=== PATIENT | female | born 1955 | race Caucasian/White ===

== ENCOUNTER 2019-01-23 14:13 | Emergency (ER) | payer SELFPAY ==
[~2019-01-23] VITALS: Ht 161.3 cm; Wt 86.2 kg
[2019-01-23 14:55] VITALS: BP 130/63
--- NOTE | 2019-01-23 15:16 | ED General ---
General Chief Complaint: General Problems/Pain Stated Complaint: NUMBNESS IN FEET AND LEGS Nursing Triage Note: Pt ambulatory to rm 1. Pt has multiple complaints. Pt c/o bilateral lower extremity numbness and tingling, and back pain that has persisted for over a year. Pt c/o blurry vision and reports being diagnosed with bleeding behind the retina. Pt also reports alternating between "the runs" and constipation. Nursing Sepsis Screen: No Definite Risk Source of Information: Patient History of Present Illness Date Seen by Provider: Jan 23, 2019 Time Seen by Provider: 15:13 Initial Comments Patient has medical complaints complaints. The main one she admitted to the that was incontinence of urine for several months. She also complains of crampy abdominal pain and tingling in bilateral feet.. He has a history of diabetes mellitus. She is new to [facility], recently moved here from [facility]. Allergies and Home Medications Allergies Uncoded Allergies: PENICILLIN (Allergy, Unknown, 01/23/19) Patient Home Medication List Home Medication List Reviewed: Yes Review of Systems Review of Systems Constitutional: malaise, weakness Respiratory: no symptoms reported Gastrointestinal: abdominal pain Genitourinary: frequency, incontinence Musculoskeletal: muscle pain Psychiatric/Neurological: Paresthesia All Other Systems Reviewed Negative Unless Noted: Yes Past Xlqlhpw-Ztwgei-Hsgssz Hx Patient Social History Alcohol Use: Denies Use Recreational Drug Use: No Smoking Status: Current Everyday Smoker Type Used: Cigarettes 2nd Hand Smoke Exposure: Yes Recent Foreign Travel: No Contact w/Someone Who Travel: No Recent Infectious Disease Expo: No Recent Hopitalizations: No Physical Abuse: No Sexual Abuse: No Seasonal Allergies Seasonal Allergies: No Past Medical History Surgeries: Yes (stent) Respiratory: No Cardiac: Yes Heart Attack Neurological: No Genitourinary: No Gastrointestinal: No Musculoskeletal: No Endocrine: Yes Diabetes, Insulin dep HEENT: Yes ("bleeding behind retina") Psychosocial: No Integumentary: No Blood Disorders: No Adverse Reaction/Blood Tranf: No Physical Exam Vital Signs Vital Signs - First Documented 01/23/19 14:55 Temp 96.9 Pulse 79 Resp 24 B/P (MAP) 130/63 (85) Pulse Ox 95 O2 Delivery Room Air Capillary Refill : Less Than 3 Seconds Height, Weight, BMI Height: 5'3.50" Weight: 190lbs. oz. 86.907528et; BMI Method:Stated General Appearance: No Apparent Distress, WD/WN Eyes: Bilateral Eye PERRL, Bilateral Eye EOMI HEENT: PERRL/EOMI, Pharynx Normal Neck: Supple Respiratory: Lungs Clear, Normal Breath Sounds Cardiovascular: Regular Rate, Rhythm, No Edema Gastrointestinal: Non Tender, Soft Back: Normal Inspection Extremity: Normal Inspection, Normal Range of Motion Neurologic/Psychiatric: Alert, No Motor/Sensory Deficits Skin: Normal Color, Warm/Dry Progress/Results/Core Measures Suspected Sepsis Recent Fever Within 48 Hours: No Infection Criteria Present: None New/Unexplained Altered Menta: No Sepsis Screen: No Definite Risk SIRS Temperature:96.9 Pulse: 79 Respiratory Rate: 24 Laboratory Tests 01/23/19 15:15: White Blood Count 6.3 Blood Pressure 130 /63 Mean: 85 Laboratory Tests 01/23/19 15:15: Creatinine 0.65, Platelet Count 292, Total Bilirubin 0.3 Results/Orders Lab Results Laboratory Tests Test 01/23/19 15:08 01/23/19 15:15 Range/Units Urine Color YELLOW Urine Clarity SLIGHTLY CLOUDY Urine pH 7 5-9 Urine Specific [place] 1.010 L 1.016-1.022 Urine Protein 3+ H NEGATIVE Urine Glucose (UA) 3+ H NEGATIVE Urine Ketones NEGATIVE NEGATIVE Urine Nitrite NEGATIVE NEGATIVE Urine Bilirubin NEGATIVE NEGATIVE Urine Urobilinogen NORMAL NORMAL MG/DL Urine Leukocyte Esterase NEGATIVE NEGATIVE Urine RBC (Auto) 3+ H NEGATIVE Urine RBC 5-10 H /HPF Urine WBC RARE /HPF Urine Squamous Epithelial Cells 0-2 /HPF Urine Crystals PRESENT H /LPF Urine Amorphous Sediment FEW MIGUEL PHOSPHATE H /LPF Urine Bacteria TRACE /HPF Urine Casts PRESENT /LPF Urine Coarse Granular Casts RARE H /LPF Urine Mucus NEGATIVE /LPF Urine Culture Indicated NO White Blood Count 6.3 4.3-11.0 10^3/uL Red Blood Count 4.57 4.35-5.85 10^6/uL Hemoglobin 13.7 11.5-16.0 G/DL Hematocrit 41 35-52 % Mean Corpuscular Volume 90 80-99 FL Mean Corpuscular Hemoglobin 30 25-34 PG Mean Corpuscular Hemoglobin Concent 34 32-36 G/DL Red Cell Distribution Width 14.9 H 10.0-14.5 % Platelet Count 292 130-400 10^3/uL Mean Platelet Volume 10.2 7.4-10.4 FL Neutrophils (%) (Auto) 49 42-75 % Lymphocytes (%) (Auto) 39 12-44 % Monocytes (%) (Auto) 7 0-12 % Eosinophils (%) (Auto) 5 0-10 % Basophils (%) (Auto) 1 0-10 % Neutrophils # (Auto) 3.1 1.8-7.8 X 10^3 Lymphocytes # (Auto) 2.5 1.0-4.0 X 10^3 Monocytes # (Auto) 0.4 0.0-1.0 X 10^3 Eosinophils # (Auto) 0.3 0.0-0.3 10^3/uL Basophils # (Auto) 0.0 0.0-0.1 10^3/uL Sodium Level 143 135-145 MMOL/L Potassium Level 3.9 3.6-5.0 MMOL/L Chloride Level 108 H 98-107 MMOL/L Carbon Dioxide Level 25 21-32 MMOL/L Anion Gap 10 5-14 MMOL/L Blood Urea Nitrogen 12 7-18 MG/DL Creatinine 0.65 0.60-1.30 MG/DL Estimat Glomerular Filtration Rate > 60 BUN/Creatinine Ratio 18 Glucose Level 99 70-105 MG/DL Calcium Level 10.4 H 8.5-10.1 MG/DL Corrected Calcium 10.5 H 8.5-10.1 MG/DL Total Bilirubin 0.3 0.1-1.0 MG/DL Aspartate Amino Transf (AST/SGOT) 15 5-34 U/L Alanine Aminotransferase (ALT/SGPT) 16 0-55 U/L Alkaline Phosphatase 53 40-136 U/L Total Protein 6.8 6.4-8.2 GM/DL Albumin 3.9 3.2-4.5 GM/DL My Orders Orders - JOSE TAI MD Cbc With Automated Diff (01/23/19 14:58) Comprehensive Metabolic Panel (01/23/19 14:58) Ua Culture If Indicated (01/23/19 14:58) Vital Signs/I&O 01/23/19 14:55 Temp 96.9 Pulse 79 Resp 24 B/P (MAP) 130/63 (85) Pulse Ox 95 O2 Delivery Room Air Capillary Refill : Less Than 3 Seconds Blood Pressure Mean: 85 Progress Note : Time: 16:17 Progress Note Patient sleeping. Informed of lab results. Very pleased. Encouraged to follow -up primary care physician. Departure Impression Primary Impression: Urinary incontinence Disposition: 01 HOME, SELF-CARE Condition: Stable Departure-Patient Inst. Decision time for Depature: 16:17 Referrals: NO,LOCAL PHYSICIAN (PCP) Primary Care Physician Patient Instructions: Urinary Incontinence, Female (DC) Add. Discharge Instructions: See a local physician of your choice as soon as possible. All discharge instructions reviewed with patient and/or family. Voiced understanding. JOSE TAI MD Jan 23, 2019 15:16
[2019-01-23 15:20] LABS: BILIRUBIN,URINE NEGATIVE (NEGATIVE); CLARITY,URINE SLIGHTLY CLOUDY; COLOR,URINE YELLOW; GLUCOSE, URINE (UA) 3+ (NEGATIVE); KETONES,URINE NEGATIVE (NEGATIVE); LEUKOCYTE ESTERASE ,URINE NEGATIVE (NEGATIVE); NITRITE,URINE NEGATIVE (NEGATIVE); PH,URINE 7 (5-9); PROTEIN,URINE 3+ (NEGATIVE); UROBILINOGEN,URINE NORMAL (NORMAL)
[2019-01-23 15:30] LABS: BASOPHILS % (AUTO) 1 % (0-10); EOSINOPHILS # (AUTO) 0.3 10^3/uL (0.0-0.3); EOSINOPHILS % (AUTO) 5 % (0-10); HEMATOCRIT 41 % (35-52); HEMOGLOBIN 13.7 G/DL (11.5-16.0); LYMPHOCYTES # (AUTO) 2.5 X 10^3 (1.0-4.0); LYMPHOCYTES % (AUTO) 39 % (12-44); MEAN CORPUSCULAR HEMOGLOBIN 30 PG (25-34); MEAN CORPUSCULAR HGB CONC 34 G/DL (32-36); MEAN CORPUSCULAR VOLUME 90 FL (80-99); MEAN PLATELET VOLUME 10.2 FL (7.4-10.4); MONOCYTES # (AUTO) 0.4 X 10^3 (0.0-1.0); MONOCYTES % (AUTO) 7 % (0-12); NEUTROPHILS # (AUTO) 3.1 X 10^3 (1.8-7.8); NEUTROPHILS % (AUTO) 49 % (42-75); PLATELET COUNT 292 10^3/uL (130-400); RED CELL DISTRIBUTION WIDTH 14.9 % (10.0-14.5); WHITE BLOOD COUNT 6.3 10^3/uL (4.3-11.0)
[2019-01-23 15:37] LABS: BACTERIA,URINE TRACE /HPF; WBC,URINE RARE /HPF
--- OUTSIDE RECORDS SUMMARY | 2019-01-23 15:37 | XMS REPORT ---
Author Author Kayla Riley [facility] Address [address] [place] [address] Care Team Providers Care Certified Respiratory Therapist Name Role Phone Kayla Riley Unavailable PROBLEMS Type Condition ICD9-CM Code [id number] Code Onset Dates Condition Status SNOMED Code Problem Urinary incontinence, unspecified type R32 Active 198955155 Problem Uncontrolled type 2 diabetes mellitus without complication, without long-term current use of insulin E11.65 Active 241236875 Problem Fibromyalgia M79.7 Active 079181614 Problem History of suicidal ideation Z86.59 Active 484630616 Problem Peripheral polyneuropathy G62.9 Active 06497034 Problem Chronic post-traumatic stress disorder (PTSD) F43.12 Active 431933393 Problem Coronary artery disease involving [place] coronary artery of [place] heart, angina presence unspecified I25.10 Active 6742268685065 Problem Postmenopausal bleeding N95.0 Active 70859535 Problem Mixed hyperlipidemia E78.2 Active 684898475 Problem Insomnia, unspecified type G47.00 Active 533724445 Problem Cognitive complaints R41.9 Active 198516993 ALLERGIES Substance Reaction Event Type Date Status Penicillin Unknown Non Drug Allergy Nov, Active ENCOUNTERS Encounter Location Date Diagnosis [facility] [address] [place], [place] [id number] Nov, Encounter for screening breast examination Z12.31 ; Encounter for screening for malignant neoplasm of rectum Z12.12 and Encounter for screening for malignant neoplasm of colon Z12.11 [facility] [address] [place], [place] [id number] Sep, Coronary artery disease involving [place] coronary artery of [place] heart, angina presence unspecified I25.10 [facility] [address] [place], [place] [id number] Jul, [facility] [address] [place], [place] [id number] Jul, Chronic post-traumatic stress disorder (PTSD) F43.12 ; History of suicidal ideation Z86.59 and Cognitive complaints R41.9 [facility] [address] [facility] [address] [place], [place] [phone] Jul, Uncontrolled type 2 diabetes mellitus without complication, without long-term current use of insulin E11.65 ; Peripheral polyneuropathy G62.9 ; Postmenopausal bleeding N95.0 and Insomnia, unspecified type G47.00 [facility] [address] [place], [place] [id number] Jun, [facility] [address] [facility] [address] [place], [place] [id number] May, Uncontrolled type 2 diabetes mellitus without complication, without long-term current use of insulin E11.65 ; Postmenopausal bleeding N95.0 and Mixed hyperlipidemia E78.[address] [place], [place] [id number] Apr, Post traumatic stress disorder (PTSD) F43.10 and Grief F43.[address] [place], [place] [phone] Apr, Uncontrolled type 2 diabetes mellitus without complication, without long-term current use of insulin E11.65 ; Coronary artery disease involving [place] coronary artery of [place] heart, angina presence unspecified I25.10 ; Tobacco use Z72.0 ; Fibromyalgia M79.7 ; Peripheral polyneuropathy G62.9 ; Grief F43.21 ; Urinary incontinence, unspecified type R32 and Heartburn R12 [address] [id number] January, IMMUNIZATIONS No Known Immunizations SOCIAL HISTORY Never Assessed REASON FOR VISIT WWE PLAN OF CARE Activity Details Follow Up RTC PRN, unsure if pt will be moving to [place] within the week Reason: Pending Test Mammogram, Screening VITAL SIGNS Heart Rate 88 /min 2018-12-19 Respiratory Rate 16 /min 2018-12-19 Temperature 97.3 degrees Fahrenheit 2018-12-19 BMI 30.41 kg/m2 2018-12-19 Height 67 in 2018-12-19 Weight 194.2 lbs 2018-12-19 Blood pressure systolic 140 mm Hg 2018-12-19 Blood pressure diastolic 80 mm Hg 2018-12-19 MEDICATIONS Medication Instructions Dosage Frequency Start Date End Date Duration Status Lisinopril 20 MG Orally Once a day 1 tablet 24h 90 days Active GlipiZIDE 10 MG Orally twice a day 1 tablet 12h 30 days Active Aspirin 81 MG 1 tablet as needed Active Atorvastatin Calcium 40 MG Orally Once a day 1 tablet 24h May, 30 day(s) Not-Taking Metformin HCl 1000 MG Orally twice a day 1 tablet with a meal 12h 30 days Active Ranitidine HCl 150 MG Orally Twice a day 1 tablet 12h Apr, 30 day(s) Active Nortriptyline HCl 25 MG Orally Once a day 1 capsule; may increase to 2 if needed 24h Apr, 30 days Active Januvia 100 MG Orally Once a day 1 tablet 24h Jul, 30 day(s) Not-Taking RESULTS No Results PROCEDURES Procedure Date Ordered Result Body Site SCR MAMMO BI INCL CAD December 19, 2018 INSTRUCTIONS MEDICATIONS ADMINISTERED No Known Medications MEDICAL (GENERAL) HISTORY Type Description Date Medical History diabetes Medical History cad with stent 2010 Medical History PTSD Medical History fibromyalgia Medical History osteoarthritis Medical History bipolar disorder Medical History Grief Surgical History No know Surgical history Hospitalization History Heart attack in [facility] 2010
--- OUTSIDE RECORDS SUMMARY | 2019-01-23 15:37 | XMS REPORT ---
Author Author Tenisha Powell Formerly [facility] Address [address] [place] [address] Care Team Providers Care Non Destructive Evaluation Technician Name Role Phone Tenisha Powell Unavailable PROBLEMS Type Condition ICD9-CM Code [id number] Code Onset Dates Condition Status SNOMED Code Problem Fibromyalgia M79.7 Active 583116131 Problem Coronary artery disease involving [place] coronary artery of [place] heart, angina presence unspecified I25.10 Active 0788576537075 Problem Grief F43.21 Active 618431978 Problem Uncontrolled type 2 diabetes mellitus without complication, without long-term current use of insulin E11.65 Active 544401711 Problem Insomnia, unspecified type G47.00 Active 144195164 Problem Mixed hyperlipidemia E78.2 Active 326711228 Problem Urinary incontinence, unspecified type R32 Active 980304316 Problem Peripheral polyneuropathy G62.9 Active 24864207 Problem Postmenopausal bleeding N95.0 Active 39025160 Problem Post traumatic stress disorder (PTSD) F43.10 Active 99269495 ALLERGIES Substance Reaction Event Type Date Status Penicillin Unknown Non Drug Allergy Jul, Active ENCOUNTERS Encounter Location Date Diagnosis [facility] [place] [address] [facility] [address] [place], [place] [id number] Jul, [facility] [place] [address] [facility] [address] [place], [place] [id number] Jul, Uncontrolled type 2 diabetes mellitus without complication, without long-term current use of insulin E11.65 ; Peripheral polyneuropathy G62.9 ; Postmenopausal bleeding N95.0 and Insomnia, unspecified type G47.00 [facility] [address] [place], [place] [phone] Jun, [facility] [place] [address] [facility] [address] [place], [place] [id number] May, Uncontrolled type 2 diabetes mellitus without complication, without long-term current use of insulin E11.65 ; Postmenopausal bleeding N95.0 and Mixed hyperlipidemia E78.2 [facility] [place] [address] [facility] [address] [place], [place] [phone] Apr, Post traumatic stress disorder (PTSD) F43.10 and Grief F43.21 [facility] [place] [address] [facility] [address] [place], [place] [phone] Apr, Uncontrolled type 2 diabetes mellitus without complication, without long-term current use of insulin E11.65 ; Coronary artery disease involving [place] coronary artery of [place] heart, angina presence unspecified I25.10 ; Tobacco use Z72.0 ; Fibromyalgia M79.7 ; Peripheral polyneuropathy G62.9 ; Grief F43.21 ; Urinary incontinence, unspecified type R32 and Heartburn R12 [facility] [place] [address] [facility] [address] [place], [place] [phone] January, IMMUNIZATIONS No Known Immunizations SOCIAL HISTORY Never Assessed REASON FOR VISIT pain in pelvic PLAN OF CARE Activity Details Follow Up 2 Months Reason:dm, mood VITAL SIGNS Heart Rate 98 /min 2018-07-12 Respiratory Rate 16 /min 2018-07-12 Oximetry 98 % 2018-07-12 BMI 30.38 kg/m2 2018-07-12 Height 67 in 2018-07-12 Weight 194.0 lbs 2018-07-12 Blood pressure systolic 158 mm Hg 2018-07-12 Blood pressure diastolic 82 mm Hg 2018-07-12 MEDICATIONS Medication Instructions Dosage Frequency Start Date End Date Duration Status Lisinopril 20 MG Orally Once a day 1 tablet 24h 30 days Active Aspirin 81 MG 1 tablet as needed Active Ranitidine HCl 150 MG Orally Twice a day 1 tablet 12h Apr, 30 day(s) Active Atorvastatin Calcium 40 MG Orally Once a day 1 tablet 24h May, 30 day(s) Not-Taking Metformin HCl 1000 MG Orally twice a day 1 tablet with a meal 12h 30 days Active Nortriptyline HCl 25 MG Orally Once a day 1 capsule; may increase to 2 if needed 24h Apr, 30 days Active GlipiZIDE 10 MG Orally twice a day 1 tablet 12h 30 days Active Januvia 100 MG Orally Once a day 1 tablet 24h Jul, 30 day(s) Active RESULTS No Results PROCEDURES Procedure Date Ordered Result Body Site Multiple services provided same day adj 2nd copay Jul 12, 2018 Flu Shot Jul 12, 2018 INSTRUCTIONS MEDICATIONS ADMINISTERED No Known Medications MEDICAL (GENERAL) HISTORY Type Description Date Medical History diabetes Medical History cad with stent 2010 Medical History PTSD Medical History fibromyalgia Medical History osteoarthritis Medical History bipolar disorder Hospitalization History Heart attack in [place] [address]
--- OUTSIDE RECORDS SUMMARY | 2019-01-23 15:37 | XMS REPORT ---
Author Author Tenisha Powell Formerly [facility] Address [address] [place] [address] Care Team Providers Care Clinic Assistant Name Role Phone CelsaTenisha urena Unavailable PROBLEMS Type Condition ICD9-CM Code [id number] Code Onset Dates Condition Status SNOMED Code Problem Urinary incontinence, unspecified type R32 Active 171334179 Problem Fibromyalgia M79.7 Active 496334310 Problem Uncontrolled type 2 diabetes mellitus without complication, without long-term current use of insulin E11.65 Active 217952087 Problem Coronary artery disease involving [place] coronary artery of [place] heart, angina presence unspecified I25.10 Active 1772604049382 Problem Peripheral polyneuropathy G62.9 Active 17322841 Problem Chronic post-traumatic stress disorder (PTSD) F43.12 Active 723432369 Problem History of suicidal ideation Z86.59 Active 382286882 Problem Mixed hyperlipidemia E78.2 Active 546098347 Problem Postmenopausal bleeding N95.0 Active 55322228 Problem Cognitive complaints R41.9 Active 021223652 Problem Insomnia, unspecified type G47.00 Active 674898100 ALLERGIES Substance Reaction Event Type Date Status Penicillin Unknown Non Drug Allergy Jul, Active ENCOUNTERS Encounter Location Date Diagnosis [facility] [address] [facility] [address] [place], [place] [id number] Jul, [facility] [address] [facility] [address] [place], [place] [id number] Jul, Chronic post-traumatic stress disorder (PTSD) F43.12 ; History of suicidal ideation Z86.59 and Cognitive complaints R41.9 [facility] [address] [facility] [address] [place], [place] [id number] Jul, Uncontrolled type 2 diabetes mellitus without complication, without long-term current use of insulin E11.65 ; Peripheral polyneuropathy G62.9 ; Postmenopausal bleeding N95.0 and Insomnia, unspecified type G47.00 [place] [address] [place], [place] [id number] Jun, [facility] [address] [facility] [address] [place] [id number] May, Uncontrolled type 2 diabetes mellitus without complication, without long-term current use of insulin E11.65 ; Postmenopausal bleeding N95.0 and Mixed hyperlipidemia E78.2 [facility] [address] [facility] [address] [place] [id number] Apr, Post traumatic stress disorder (PTSD) F43.10 and Grief F43.21 [facility] [address] [facility] [address] [place] [id number] Apr, Uncontrolled type 2 diabetes mellitus without complication, without long-term current use of insulin E11.65 ; Coronary artery disease involving [place] coronary artery of [place] heart, angina presence unspecified I25.10 ; Tobacco use Z72.0 ; Fibromyalgia M79.7 ; Peripheral polyneuropathy G62.9 ; Grief F43.21 ; Urinary incontinence, unspecified type R32 and Heartburn R12 [address] [place] [id number] January, IMMUNIZATIONS No Known Immunizations SOCIAL HISTORY [...] Medical History bipolar disorder Medical History Grief Hospitalization History Heart attack in [facility] 2010
--- OUTSIDE RECORDS SUMMARY | 2019-01-23 15:37 | XMS REPORT ---
Author Author Tenisha Powell [facility] Address [address] [place] [address] Care Team Providers Care Academic Interventionist Name Role Phone Tenisha Powell Unavailable PROBLEMS Type Condition ICD9-CM Code PAV42-ZD Code Onset Dates Condition Status SNOMED Code Problem Fibromyalgia M79.7 Active 987757717 Problem Grief F43.21 Active 490269890 Problem Uncontrolled type 2 diabetes mellitus without complication, without long-term current use of insulin E11.65 Active 312436285 Problem Mixed hyperlipidemia E78.2 Active 214578239 Problem Postmenopausal bleeding N95.0 Active 88071773 Problem Peripheral polyneuropathy G62.9 Active 10665012 Problem Coronary artery disease involving [place] coronary artery of [place] heart, angina presence unspecified I25.10 Active 2844040339587 Problem Post traumatic stress disorder (PTSD) F43.10 Active 57250394 Problem Urinary incontinence, unspecified type R32 Active 967393235 ALLERGIES No Information ENCOUNTERS Encounter Location Date Diagnosis [facility] [address] [facility] [address] [place], [place] [id number] Jun, [facility] [address] [place], [place] [phone] Jun, [facility] [address] [facility] [address] [place], [place] [id number] May, Uncontrolled type 2 diabetes mellitus without complication, without long-term current use of insulin E11.65 ; Postmenopausal bleeding N95.0 and Mixed hyperlipidemia E78.2 [facility] [address] [facility] [address] [place], [place] [phone] Apr, Post traumatic stress disorder (PTSD) F43.10 and Grief F43.21 [facility] [address] [facility] [address] [place], [place] [phone] Apr, Uncontrolled type 2 diabetes mellitus without complication, without long-term current use of insulin E11.65 ; Coronary artery disease involving [place] coronary artery of [place] heart, angina presence unspecified I25.10 ; Tobacco use Z72.0 ; Fibromyalgia M79.7 ; Peripheral polyneuropathy G62.9 ; Grief F43.21 ; Urinary incontinence, unspecified type R32 and Heartburn R12 [facility] [address] [place], [place] [id number] January, IMMUNIZATIONS No Known Immunizations SOCIAL HISTORY Never Assessed REASON FOR VISIT PLAN OF CARE VITAL SIGNS MEDICATIONS Unknown Medications RESULTS No Results PROCEDURES No Known procedures INSTRUCTIONS MEDICATIONS ADMINISTERED No Known Medications MEDICAL (GENERAL) HISTORY Type Description Date Medical History diabetes Medical History cad with stent 2010 Medical History PTSD Medical History fibromyalgia Medical History osteoarthritis Medical History bipolar disorder Hospitalization History Heart attack in [facility] 2010
--- OUTSIDE RECORDS SUMMARY | 2019-01-23 15:37 | XMS REPORT ---
Author Author Tenisha Powell [facility] Address [address] [place] [address] Care Team Providers Care Buttonhole Maker Hand Name Role Phone Tenisha Powell Unavailable PROBLEMS Type Condition ICD9-CM Code [id number] Code Onset Dates Condition Status SNOMED Code Problem Urinary incontinence, unspecified type R32 Active 758690183 Problem Uncontrolled type 2 diabetes mellitus without complication, without long-term current use of insulin E11.65 Active 009490856 Problem Fibromyalgia M79.7 Active 945585897 Problem History of suicidal ideation Z86.59 Active 931703991 Problem Peripheral polyneuropathy G62.9 Active 07958322 Problem Chronic post-traumatic stress disorder (PTSD) F43.12 Active 045378356 Problem Coronary artery disease involving ey[place] coronary artery of eyak heart, angina presence unspecified I25.10 Active 8992178353089 Problem Postmenopausal bleeding N95.0 Active 77085776 Problem Mixed hyperlipidemia E78.2 Active 525682267 Problem Insomnia, unspecified type G47.00 Active 881501867 Problem Cognitive complaints R41.9 Active 578861932 ALLERGIES No Information ENCOUNTERS Encounter Location Date Diagnosis [facility] [place] [address] [place], [place] [id number] Dec, Uncontrolled type 2 diabetes mellitus without complication, without long-term current use of insulin E11.65 [facility] [place] [address] [place], [place] [phone] Nov, Encounter for screening breast examination Z12.31 ; Encounter for screening for malignant neoplasm of rectum Z12.12 and Encounter for screening for malignant neoplasm of colon Z12.11 [facility] [place] [address] [place], [place] [phone] Sep, Coronary artery disease involving ey[place] coronary artery of eyak heart, angina presence unspecified I25.10 [facility] [place] [address] [place], [place] [phone] Jul, [facility] [place] [address] [place], [place] [id number] Jul, Chronic post-traumatic stress disorder (PTSD) F43.12 ; History of suicidal ideation Z86.59 and Cognitive complaints R41.[address] [place], [place] [id number] Jul, Uncontrolled type 2 diabetes mellitus without complication, without long-term current use of insulin E11.65 ; Peripheral polyneuropathy G62.9 ; Postmenopausal bleeding N95.0 and Insomnia, unspecified type G47.00 [facility] [address] [place], [place] [id number] Jun, [facility] [place] [address] [facility] [place] [address] [place], [place] [id number] May, Uncontrolled type 2 diabetes mellitus without complication, without long-term current use of insulin E11.65 ; Postmenopausal bleeding N95.0 and Mixed hyperlipidemia E78.[address] [id number] Apr, Post traumatic stress disorder (PTSD) F43.10 and Grief F43.[address] [id number] Apr, Uncontrolled type 2 diabetes mellitus without complication, without long-term current use of insulin E11.65 ; Coronary artery disease involving ey[place] coronary artery of eyak heart, angina presence unspecified I25.10 ; Tobacco use Z72.0 ; Fibromyalgia M79.7 ; Peripheral polyneuropathy G62.9 ; Grief F43.21 ; Urinary incontinence, unspecified type R32 and Heartburn R12 [address] [id number] January, IMMUNIZATIONS No Known Immunizations SOCIAL HISTORY Never Assessed REASON FOR VISIT med PLAN OF CARE VITAL SIGNS MEDICATIONS Medication Instructions Dosage Frequency Start Date End Date Duration Status Metformin HCl 1000 MG Orally twice a day 1 tablet with a meal 12h 30 days Active RESULTS No Results PROCEDURES No Known procedures INSTRUCTIONS MEDICATIONS ADMINISTERED No Known Medications MEDICAL (GENERAL) HISTORY Type Description Date Medical History diabetes Medical History cad with stent 2010 Medical History PTSD Medical History fibromyalgia Medical History osteoarthritis Medical History bipolar disorder Medical History Grief Surgical History No know Surgical history Hospitalization History Heart attack in [facility] 2010
--- OUTSIDE RECORDS SUMMARY | 2019-01-23 15:37 | XMS REPORT ---
Author Author Costa Brinda [facility] Address [address] [facility] [address] [place], [place] [phone] Care Team Providers Care Chinese Herbalist Name Role Phone Surendra Skeltonnon Unavailable PROBLEMS Type Condition ICD9-CM Code [id number] Code Onset Dates Condition Status SNOMED Code Problem Urinary incontinence, unspecified type R32 Active 834268170 Problem Fibromyalgia M79.7 Active 224872619 Problem Uncontrolled type 2 diabetes mellitus without complication, without long-term current use of insulin E11.65 Active 246504115 Problem Coronary artery disease involving [place] coronary artery of [place] heart, angina presence unspecified I25.10 Active 2454194118428 Problem Peripheral polyneuropathy G62.9 Active 04477239 Problem Chronic post-traumatic stress disorder (PTSD) F43.12 Active 249390633 Problem History of suicidal ideation Z86.59 Active 901704050 Problem Mixed hyperlipidemia E78.2 Active 229179314 Problem Postmenopausal bleeding N95.0 Active 11322108 Problem Cognitive complaints R41.9 Active 966946309 Problem Insomnia, unspecified type G47.00 Active 509344431 ALLERGIES No Information ENCOUNTERS Encounter Location Date Diagnosis [facility] [address] [facility] [address] [place], [place] [id number] Jul, Chronic post-traumatic stress disorder (PTSD) F43.12 ; History of suicidal ideation Z86.59 and Cognitive complaints R41.9 [facility] [address] [facility] [address] [place], [place] [phone] Jul, Uncontrolled type 2 diabetes mellitus without complication, without long-term current use of insulin E11.65 ; Peripheral polyneuropathy G62.9 ; Postmenopausal bleeding N95.0 and Insomnia, unspecified type G47.00 [facility] [address] [place], [place] [phone] Jun, [facility] [address] [facility] [address] [place], [place] [phone] May, Uncontrolled type 2 diabetes mellitus without complication, without long-term current use of insulin E11.65 ; Postmenopausal bleeding N95.0 and Mixed hyperlipidemia E78.2 [facility] [address] [facility] [address] [place], [place] [phone] Apr, Post traumatic stress disorder (PTSD) F43.10 and Grief F43.[address] [facility] [address] [place], [place] [id number] Apr, Uncontrolled type 2 diabetes mellitus without complication, without long-term current use of insulin E11.65 ; Coronary artery disease involving [place] coronary artery of [place] heart, angina presence unspecified I25.10 ; Tobacco use Z72.0 ; Fibromyalgia M79.7 ; Peripheral polyneuropathy G62.9 ; Grief F43.21 ; Urinary incontinence, unspecified type R32 and Heartburn R12 [address] [facility] [address] [place], [place] [phone] January, IMMUNIZATIONS No Known Immunizations SOCIAL HISTORY Never Assessed REASON FOR VISIT pain in pelvic, [facility] Integrated Visit PLAN OF CARE VITAL SIGNS MEDICATIONS Unknown Medications RESULTS No Results PROCEDURES Procedure Date Ordered Result Body Site Psytx Est pt & family 30 minutes Jul 12, 2018 Multiple services provided same day adj 2nd copay Jul 12, 2018 INSTRUCTIONS MEDICATIONS ADMINISTERED No Known Medications MEDICAL (GENERAL) HISTORY Type Description Date Medical History diabetes Medical History cad with stent 2010 Medical History PTSD Medical History fibromyalgia Medical History osteoarthritis Medical History bipolar disorder Hospitalization History Heart attack in [facility] 2010
--- OUTSIDE RECORDS SUMMARY | 2019-01-23 15:37 | XMS REPORT ---
Author Author Tenisha Powell [facility] Address [address] [place] [address] Care Team Providers Care Walnut Dehydrator Operator Name Role Phone Tenisha Powell Unavailable PROBLEMS Type Condition ICD9-CM Code [id number] Code Onset Dates Condition Status SNOMED Code Problem Fibromyalgia M79.7 Active 997453733 Problem Grief F43.21 Active 558997016 Problem Uncontrolled type 2 diabetes mellitus without complication, without long-term current use of insulin E11.65 Active 978449203 Problem Mixed hyperlipidemia E78.2 Active 171653636 Problem Postmenopausal bleeding N95.0 Active 25506181 Problem Peripheral polyneuropathy G62.9 Active 21500697 Problem Coronary artery disease involving [place] coronary artery of [place] heart, angina presence unspecified I25.10 Active 1774991321063 Problem Post traumatic stress disorder (PTSD) F43.10 Active 94612602 Problem Urinary incontinence, unspecified type R32 Active 275089891 ALLERGIES Substance Reaction Event Type Date Status Penicillin Unknown Non Drug Allergy May, Active ENCOUNTERS Encounter Location Date Diagnosis [facility] [address] [facility] [address] [place], [place] [phone] Jun, [facility] [address] [facility] [address] [place], [place] [id number] May, Uncontrolled type 2 diabetes mellitus without complication, without long-term current use of insulin E11.65 ; Postmenopausal bleeding N95.0 and Mixed hyperlipidemia E78.2 [facility] [address] [facility] [address] [place], [place] [id number] Apr, Post traumatic stress disorder (PTSD) F43.10 and Grief F43.21 [facility] [address] [facility] [address] [place], [place] [id number] Apr, Uncontrolled type 2 diabetes mellitus without complication, without long-term current use of insulin E11.65 ; Coronary artery disease involving [place] coronary artery of [place] heart, angina presence unspecified I25.10 ; Tobacco use Z72.0 ; Fibromyalgia M79.7 ; Peripheral polyneuropathy G62.9 ; Grief F43.21 ; Urinary incontinence, unspecified type R32 and Heartburn R12 [facility] [address] [place] [id number] January, IMMUNIZATIONS No Known Immunizations SOCIAL HISTORY Never Assessed REASON FOR VISIT 6 wks DM fu PLAN OF CARE Activity Details Follow Up 4 Weeks procedure Reason:embx Pending Test Glucose, Serum Pending Test Ultrasound : Pelvic : Transvaginal if Needed VITAL SIGNS Heart Rate 86 /min 2018-05-29 Respiratory Rate 16 /min 2018-05-29 Oximetry 98 % 2018-05-29 BMI 30.16 kg/m2 2018-05-29 Height 67 in 2018-05-29 Weight 192.6 lbs 2018-05-29 Blood pressure systolic 142 mm Hg 2018-05-29 Blood pressure diastolic 70 mm Hg 2018-05-29 MEDICATIONS Medication Instructions Dosage Frequency Start Date End Date Duration Status Ranitidine HCl 150 MG Orally Twice a day 1 tablet 12h Apr, 30 day(s) Active Aspirin 81 MG 1 tablet as needed Active Atorvastatin Calcium 40 MG Orally Once a day 1 tablet 24h May, 30 day(s) Active Nortriptyline HCl 10 MG Orally at bedtime Once a day 1 capsule 24h Apr, 30 day(s) Active Lisinopril 20 MG Orally Once a day 1 tablet 24h 30 days Active Metformin HCl 1000 MG Orally twice a day 1 tablet with a meal 12h 30 days Active GlipiZIDE 10 MG Orally twice a day 1 tablet 12h 30 days Active RESULTS No Results PROCEDURES Procedure Date Ordered Result Body Site ASSAY GLUCOSE BLOOD QUANT GLUCOSE; QUANTITATIVE, BLOOD (EXCEPT REAGENT STRIP) May 29, 2018 ANOSCOPY May 29, 2018 INSTRUCTIONS MEDICATIONS ADMINISTERED No Known Medications MEDICAL (GENERAL) HISTORY Type Description Date Medical History diabetes Medical History cad with stent 2010 Medical History PTSD Medical History fibromyalgia Medical History osteoarthritis Medical History bipolar disorder Hospitalization History Heart attack in [facility] 2010
--- OUTSIDE RECORDS SUMMARY | 2019-01-23 15:37 | XMS REPORT ---
Author Author Tenisha Powell [facility] Address [address] [place] [address] Care Team Providers Care Guitar Repair Technician Name Role Phone Tenisha Powell Unavailable PROBLEMS Type Condition ICD9-CM Code [id number] Code Onset Dates Condition Status SNOMED Code Problem Urinary incontinence, unspecified type R32 Active 441067930 Problem Uncontrolled type 2 diabetes mellitus without complication, without long-term current use of insulin E11.65 Active 537880148 Problem Fibromyalgia M79.7 Active 037234268 Problem History of suicidal ideation Z86.59 Active 801430667 Problem Peripheral polyneuropathy G62.9 Active 05237538 Problem Chronic post-traumatic stress disorder (PTSD) F43.12 Active 315574773 Problem Coronary artery disease involving [place] coronary artery of [place] heart, angina presence unspecified I25.10 Active 7824597660752 Problem Postmenopausal bleeding N95.0 Active 05509671 Problem Mixed hyperlipidemia E78.2 Active 217747982 Problem Insomnia, unspecified type G47.00 Active 335143336 Problem Cognitive complaints R41.9 Active 680595657 ALLERGIES No Information ENCOUNTERS Encounter Location Date Diagnosis [facility] [address] [facility] [address] [place], [place] [phone] Dec, Uncontrolled type 2 diabetes mellitus without complication, without long-term current use of insulin E11.65 and Coronary artery disease involving [place] coronary artery of [place] heart, angina presence unspecified I25.10 [facility] [address] [facility] [address] [place], [place] [id number] Dec, Uncontrolled type 2 diabetes mellitus without complication, without long-term current use of insulin E11.65 [facility] [address] [facility] [address] [place], [place] [id number] Nov, Encounter for screening breast examination Z12.31 ; Encounter for screening for malignant neoplasm of rectum Z12.12 and Encounter for screening for malignant neoplasm of colon Z12.11 [facility] [address] [facility] [address] [place], [place] [id number] Sep, Coronary artery disease involving [place] coronary artery of [place] heart, angina presence unspecified I25.10 [facility] [address] [facility] [address] [place], [place] [id number] Jul, [facility] [address] [facility] [address] [place], [place] [id number] Jul, Chronic post-traumatic stress disorder (PTSD) F43.12 ; History of suicidal ideation Z86.59 and Cognitive complaints R41.[address] [place], [place] [id number] Jul, Uncontrolled type 2 diabetes mellitus without complication, without long-term current use of insulin E11.65 ; Peripheral polyneuropathy G62.9 ; Postmenopausal bleeding N95.0 and Insomnia, unspecified type G47.00 [facility] [address] [place], [place] [phone] Jun, [address] [place], [place] [phone] May, Uncontrolled type 2 diabetes mellitus without complication, without long-term current use of insulin E11.65 ; Postmenopausal bleeding N95.0 and Mixed hyperlipidemia E78.[address] [place], [place] [id number] Apr, Post traumatic stress disorder (PTSD) F43.10 and Grief F43.[address] [place], [place] [id number] Apr, Uncontrolled type 2 diabetes mellitus without complication, without long-term current use of insulin E11.65 ; Coronary artery disease involving [place] coronary artery of [place] heart, angina presence unspecified I25.10 ; Tobacco use Z72.0 ; Fibromyalgia M79.7 ; Peripheral polyneuropathy G62.9 ; Grief F43.21 ; Urinary incontinence, unspecified type R32 and Heartburn R12 [address] [place], [place] [id number] January, IMMUNIZATIONS No Known Immunizations SOCIAL HISTORY Never Assessed REASON FOR VISIT Refill Request PLAN OF CARE VITAL SIGNS MEDICATIONS Medication [...] Surgical history Hospitalization History Heart attack in [facility] 2010
[2019-01-23 15:38] LABS: AMORPHOUS SEDIMENT,UR FEW AMOR PHOSPHATE /LPF; SQUAMOUS EPITHELIAL CELL,UR 0-2 /HPF
--- OUTSIDE RECORDS SUMMARY | 2019-01-23 15:38 | XMS REPORT ---
Author Author Care, Coordinator Organization Unknown Address Unknown Phone Unavailable Care Team Providers Care Package Winder Name Role Phone Care, Coordinator Unavailable Unavailable PROBLEMS Unknown Problems ALLERGIES No Information ENCOUNTERS Encounter Location Date Diagnosis [facility] [address] [place], [place] [phone] Mar, [facility] [address] [place], [place] [phone] January, IMMUNIZATIONS No Known Immunizations SOCIAL HISTORY Never Assessed REASON FOR VISIT PLAN OF CARE VITAL SIGNS MEDICATIONS Unknown Medications RESULTS No Results PROCEDURES No Known procedures INSTRUCTIONS MEDICATIONS ADMINISTERED No Known Medications
--- OUTSIDE RECORDS SUMMARY | 2019-01-23 15:38 | XMS REPORT ---
Author Author Osito Joe [facility] Address [address] [facility] [address] [place] [address] Care Team Providers Care Landscape Nurseryman Name Role Phone FatemehdebbieOsito Unavailable PROBLEMS Type Condition ICD9-CM Code [id number] Code Onset Dates Condition Status SNOMED Code Problem Uncontrolled type 2 diabetes mellitus without complication, without long-term current use of insulin E11.65 Active 521805631 Problem Post traumatic stress disorder (PTSD) F43.10 Active 36903198 Problem Urinary incontinence, unspecified type R32 Active 643570198 Problem Grief F43.21 Active 720482685 Problem Fibromyalgia M79.7 Active 346502652 Problem Peripheral polyneuropathy G62.9 Active 05314976 Problem Coronary artery disease involving [place] coronary artery of [place] heart, angina presence unspecified I25.10 Active 7126158425131 ALLERGIES No Information ENCOUNTERS Encounter Location Date Diagnosis [facility] [address] [facility] [address] [place], [place] [phone] May, [facility] [address] [facility] [address] [place], [place] [phone] Apr, Post traumatic stress disorder (PTSD) F43.10 and Grief F43.21 [facility] [address] [facility] [address] [place], [place] [id number] Apr, Uncontrolled type 2 diabetes mellitus without complication, without long-term current use of insulin E11.65 ; Coronary artery disease involving [place] coronary artery of [place] ir[place] heart, angina presence unspecified I25.10 ; Tobacco use Z72.0 ; Fibromyalgia M79.7 ; Peripheral polyneuropathy G62.9 ; Grief F43.21 ; Urinary incontinence, unspecified type R32 and Heartburn R12 [facility] [address] [facility] [address] [place], [place] [phone] January, IMMUNIZATIONS No Known Immunizations SOCIAL HISTORY Never Assessed REASON FOR VISIT grief reaction PLAN OF CARE VITAL SIGNS MEDICATIONS Unknown Medications RESULTS No Results PROCEDURES Procedure Date Ordered Result Body Site Psytx New Pt April 17, 2018 Multiple services provided same day adj 2nd copay April 17, 2018 BEHAV CHNG SMOKING 3-10 MIN April 17, 2018 INSTRUCTIONS MEDICATIONS ADMINISTERED No Known Medications MEDICAL (GENERAL) HISTORY Type Description Date Medical History diabetes Medical History cad with stent 2010 Medical History PTSD Medical History fibromyalgia Medical History osteoarthritis Hospitalization History Heart attack in [facility] 2010
--- OUTSIDE RECORDS SUMMARY | 2019-01-23 15:38 | XMS REPORT ---
Author Author Tenisha Powell [facility] Address [address] [place] [address] Care Team Providers Care [facility] Pricing Consultant Name Role Phone Tenisha Poewll Unavailable PROBLEMS Type Condition ICD9-CM Code [id number] Code Onset Dates Condition Status SNOMED Code Problem Uncontrolled type 2 diabetes mellitus without complication, without long-term current use of insulin E11.65 Active 680949175 Problem Post traumatic stress disorder (PTSD) F43.10 Active 54741713 Problem Urinary incontinence, unspecified type R32 Active 665243391 Problem Grief F43.21 Active 394584596 Problem Fibromyalgia M79.7 Active 983573780 Problem Peripheral polyneuropathy G62.9 Active 45797225 Problem Coronary artery disease involving [place] coronary artery of [place] heart, angina presence unspecified I25.10 Active 0366936901783 ALLERGIES Substance Reaction Event Type Date Status Penicillin Unknown Non Drug Allergy Apr, Active ENCOUNTERS Encounter Location Date Diagnosis [facility] [address] [facility] [address] [place], [place] [phone] May, [facility] [address] [facility] [address] [place], [place] [phone] Apr, Post traumatic stress disorder (PTSD) F43.10 [facility] [address] [facility] [address] [place], [place] [phone] Apr, Uncontrolled type 2 diabetes mellitus without complication, without long-term current use of insulin E11.65 ; Coronary artery disease involving [place] coronary artery of [place] heart, angina presence unspecified I25.10 ; Tobacco use Z72.0 ; Fibromyalgia M79.7 ; Peripheral polyneuropathy G62.9 ; Grief F43.21 ; Urinary incontinence, unspecified type R32 and Heartburn R12 [facility] [address] [facility] [address] [place], [place] [phone] January, IMMUNIZATIONS No Known Immunizations SOCIAL HISTORY Never Assessed REASON FOR VISIT Diabetic, establish care PLAN OF CARE Activity Details Follow Up 3 Weeks wwe;, 6 Weeks Reason:dm Pending Test Vitamin B12 and Folate Pending Test Urinalysis, Complete w/Microscopic Examination Pending Test Urine Culture, Routine Pending Test Microalb/Creat Ratio, Randm Ur Pending Test Lipid Panel Pending Test TSH c reflex Pending Test CMP (Comprehensive Metabolic Panel) VITAL SIGNS Heart Rate 86 /min 2018-04-17 Respiratory Rate 18 /min 2018-04-17 Temperature 96.2 degrees Fahrenheit 2018-04-17 BMI 29.50 kg/m2 2018-04-17 Height 67 in 2018-04-17 Weight 188.4 lbs 2018-04-17 Blood pressure systolic 140 mm Hg 2018-04-17 Blood pressure diastolic 78 mm Hg 2018-04-17 MEDICATIONS Medication Instructions Dosage Frequency Start Date End Date Duration Status Nortriptyline HCl 10 MG Orally at bedtime Once a day 1 capsule 24h Apr, 30 day(s) Active Ranitidine HCl 150 MG Orally Twice a day 1 tablet 12h Apr, 30 day(s) Active Simvastatin 20 MG Orally Once a day 1 tablet in the evening 24h 30 days Active Lisinopril 20 MG Orally Once a day 1 tablet 24h 30 days Active GlipiZIDE 10 MG Orally twice a day 1 tablet 12h 30 days Active Metformin HCl 1000 MG Orally twice a day 1 tablet with a meal 12h 30 days Active Aspirin 81 MG 1 tablet as needed Active RESULTS Name Result Date Reference Range Glucose, Serum Glucose, Serum 321 HgbA1c Hemoglobin A1c 9.7 PROCEDURES Procedure Date Ordered Result Body Site ASSAY GLUCOSE BLOOD QUANT GLUCOSE; QUANTITATIVE, BLOOD (EXCEPT REAGENT STRIP) April 17, 2018 Multiple services provided same day adj 2nd copay April 17, 2018 GLYCOSYLATED HEMOGLOBIN TEST HEMOGLOBIN; GLYCOSYLATED (A1C) April 17, 2018 INSTRUCTIONS MEDICATIONS ADMINISTERED No Known Medications MEDICAL (GENERAL) HISTORY Type Description Date Medical History diabetes Medical History cad with stent 2010 Medical History PTSD Medical History fibromyalgia Medical History osteoarthritis Hospitalization History Heart attack in [facility] 2010
[2019-01-23 15:52] LABS: ALANINE AMINOTRANSFERASE 16 U/L (0-55); ALBUMIN 3.9 GM/DL (3.2-4.5); ALKALINE PHOSPHATASE 53 U/L (40-136); BILIRUBIN,TOTAL 0.3 MG/DL (0.1-1.0); BUN/CREATININE RATIO 18; CALCIUM 10.4 MG/DL (8.5-10.1); CARBON DIOXIDE 25 MMOL/L (21-32); CHLORIDE 108 MMOL/L (98-107); CREATININE SERUM 0.65 MG/DL (0.60-1.30); GFR ESTIMATED > 60; GLUCOSE 99 MG/DL (70-105); POTASSIUM 3.9 MMOL/L (3.6-5.0); SODIUM 143 MMOL/L (135-145); TOTAL PROTEIN 6.8 GM/DL (6.4-8.2)
--- NOTE | 2019-01-23 16:25 | NUR ---
Went to pt's room with discharge paperwork and pt not in room. Asked at nurse's desk if anyone had seen pt. Was told pt asked at desk where exit was. Person at desk thought pt was family and showed pt the exit. This nurse had not removed pt's IV. This nurse called [place] police dept for welfare check. Pt had not been to this hospital before and there is no address on file. Police given description of pt.
== END 2019-01-23 16:30 | disposition home or self-care (01) ==
LOC: ER 14:15
DX: R32 Unspecified urinary incontinence (principal); E11.9 Type 2 diabetes mellitus without complications; I25.2 Old myocardial infarction; F17.210 Nicotine dependence, cigarettes, uncomplicated; Z88.0 Allergy status to penicillin; Z95.5 Presence of coronary angioplasty implant and graft
CPT/HCPCS: 36415; 80053; 81000; 85025; 99282

== ENCOUNTER 2019-06-01 20:37 | Emergency (ER) | payer SELFPAY ==
[~2019-06-01] VITALS: Ht 152.4 cm; Wt 82.6 kg
[2019-06-01 21:31] LABS: BASOPHILS % (AUTO) 0 % (0-10); EOSINOPHILS # (AUTO) 0.3 10^3/uL (0.0-0.3); EOSINOPHILS % (AUTO) 4 % (0-10); HEMATOCRIT 41 % (35-52); HEMOGLOBIN 13.9 G/DL (11.5-16.0); LYMPHOCYTES # (AUTO) 3.3 X 10^3 (1.0-4.0); LYMPHOCYTES % (AUTO) 39 % (12-44); MEAN CORPUSCULAR HEMOGLOBIN 31 PG (25-34); MEAN CORPUSCULAR HGB CONC 34 G/DL (32-36); MEAN CORPUSCULAR VOLUME 92 FL (80-99); MEAN PLATELET VOLUME 10.2 FL (7.4-10.4); MONOCYTES # (AUTO) 0.6 X 10^3 (0.0-1.0); MONOCYTES % (AUTO) 7 % (0-12); NEUTROPHILS # (AUTO) 4.4 X 10^3 (1.8-7.8); NEUTROPHILS % (AUTO) 51 % (42-75); PLATELET COUNT 309 10^3/uL (130-400); RED CELL DISTRIBUTION WIDTH 14.1 % (10.0-14.5); WHITE BLOOD COUNT 8.7 10^3/uL (4.3-11.0)
[2019-06-01 21:52] LABS: ALANINE AMINOTRANSFERASE 10 U/L (0-55); ALKALINE PHOSPHATASE 61 U/L (40-136); BILIRUBIN,TOTAL 0.5 MG/DL (0.1-1.0); BUN/CREATININE RATIO 23; CALCIUM 9.7 MG/DL (8.5-10.1); CARBON DIOXIDE 22 MMOL/L (21-32); CHLORIDE 107 MMOL/L (98-107); CREATININE SERUM 0.69 MG/DL (0.60-1.30); GFR ESTIMATED > 60; GLUCOSE 124 MG/DL (70-105); MAGNESIUM 1.9 MG/DL (1.6-2.4); POTASSIUM 3.8 MMOL/L (3.6-5.0); SODIUM 140 MMOL/L (135-145); TOTAL PROTEIN 6.9 GM/DL (6.4-8.2)
--- NOTE | 2019-06-01 23:00 | NUR ---
Recieved report from KALLI Valdivia to assume care of pt @ this time.
[2019-06-01] MEDS ORDERED: LACTATED RINGERS 1,000 ML IV ONE (23:33)
--- NOTE | 2019-06-01 23:40 | NUR ---
Rectal and Vaginal exam preformed by Dr. Pyle. See providers note.
--- NOTE | 2019-06-01 23:56 | ED GU-Female ---
General Chief Complaint: - Urinary Stated Complaint: BLEEDING,PASSING BLOOD CLOTS,PAIN Nursing Triage Note: PT AMBULATES TO RM 7 WITH C/O BLOOD IN URINE X 3 DAYS. PT ALSO REPORTS PAIN IN GROIN AREA, RATED 3/10. Nursing Sepsis Screen: No Definite Risk Allergies and Home Medications Allergies Uncoded Allergies: PENICILLIN (Allergy, Unknown, 01/23/19) Past Fihkoxj-Wrdiqd-Auirey Hx Patient Social History Alcohol Use: Denies Use Recreational Drug Use: No Smoking Status: Current Everyday Smoker Type Used: Cigarettes 2nd Hand Smoke Exposure: No Recent Foreign Travel: No Contact w/Someone Who Travel: No Recent Infectious Disease Expo: No Recent Hopitalizations: No Physical Abuse: No Sexual Abuse: No Mistreated: No Fear: No Seasonal Allergies Seasonal Allergies: No Past Medical History Surgeries: Yes (stent) Respiratory: No Cardiac: Yes (HEART ATTACK 2010) Heart Attack Neurological: Yes Neuropathy Genitourinary: No Gastrointestinal: No Musculoskeletal: No Endocrine: Yes Diabetes, Non-Insulin dep HEENT: Yes ("bleeding behind retina") Cancer: No Psychosocial: No Integumentary: No Blood Disorders: No Adverse Reaction/Blood Tranf: No Physical Exam Vital Signs Vital Signs - First Documented 06/01/19 21:04 Temp 98.4 Pulse 77 Resp 18 B/P (MAP) 112/74 (87) Pulse Ox 96 O2 Delivery Room Air Capillary Refill : Less Than 3 Seconds Height, Weight, BMI Height: 5'0" Weight: 182lbs. oz. 82.988747zj; BMI Method:Stated Progress/Results/Core Measures Suspected Sepsis Recent Fever Within 48 Hours: No Infection Criteria Present: None New/Unexplained Altered Menta: No Sepsis Screen: No Definite Risk SIRS Temperature:98.4 Pulse: 77 Respiratory Rate: 18 Laboratory Tests 06/01/19 21:22: White Blood Count 8.7 Blood Pressure 112 /74 Mean: 87 Laboratory Tests 06/01/19 21:22: Creatinine 0.69, INR Comment 1.0, Platelet Count 309, Total Bilirubin 0.5 Results/Orders Lab Results Laboratory Tests Test 06/01/19 21:22 06/01/19 23:50 Range/Units White Blood Count 8.7 4.3-11.0 10^3/uL Red Blood Count 4.44 4.35-5.85 10^6/uL Hemoglobin 13.9 11.5-16.0 G/DL Hematocrit 41 35-52 % Mean Corpuscular Volume 92 80-99 FL Mean Corpuscular Hemoglobin 31 25-34 PG Mean Corpuscular Hemoglobin Concent 34 32-36 G/DL Red Cell Distribution Width 14.1 10.0-14.5 % Platelet Count 309 130-400 10^3/uL Mean Platelet Volume 10.2 7.4-10.4 FL Neutrophils (%) (Auto) 51 42-75 % Lymphocytes (%) (Auto) 39 12-44 % Monocytes (%) (Auto) 7 0-12 % Eosinophils (%) (Auto) 4 0-10 % Basophils (%) (Auto) 0 0-10 % Neutrophils # (Auto) 4.4 1.8-7.8 X 10^3 Lymphocytes # (Auto) 3.3 1.0-4.0 X 10^3 Monocytes # (Auto) 0.6 0.0-1.0 X 10^3 Eosinophils # (Auto) 0.3 0.0-0.3 10^3/uL Basophils # (Auto) 0.0 0.0-0.1 10^3/uL Prothrombin Time 13.0 12.2-14.7 SEC INR Comment 1.0 0.8-1.4 Activated Partial Thromboplast Time 28 24-35 SEC Sodium Level 140 135-145 MMOL/L Potassium Level 3.8 3.6-5.0 MMOL/L Chloride Level 107 98-107 MMOL/L Carbon Dioxide Level 22 21-32 MMOL/L Anion Gap 11 5-14 MMOL/L Blood Urea Nitrogen 16 7-18 MG/DL Creatinine 0.69 0.60-1.30 MG/DL Estimat Glomerular Filtration Rate > 60 BUN/Creatinine Ratio 23 Glucose Level 124 H 70-105 MG/DL Calcium Level 9.7 8.5-10.1 MG/DL Corrected Calcium 9.7 8.5-10.1 MG/DL Magnesium Level 1.9 1.6-2.4 MG/DL Total Bilirubin 0.5 0.1-1.0 MG/DL Aspartate Amino Transf (AST/SGOT) 10 5-34 U/L Alanine Aminotransferase (ALT/SGPT) 10 0-55 U/L Alkaline Phosphatase 61 40-136 U/L Total Protein 6.9 6.4-8.2 GM/DL Albumin 4.0 3.2-4.5 GM/DL Urine Color YELLOW Urine Clarity SL CLOUDY Urine pH 5 5-9 Urine Specific [place] 1.025 H 1.016-1.022 Urine Protein 3+ H NEGATIVE Urine Glucose (UA) 1+ H NEGATIVE Urine Ketones NEGATIVE NEGATIVE Urine Nitrite NEGATIVE NEGATIVE Urine Bilirubin NEGATIVE NEGATIVE Urine Urobilinogen NORMAL NORMAL MG/DL Urine Leukocyte Esterase 1+ H NEGATIVE Urine RBC (Auto) 5+ H NEGATIVE Urine RBC 5-10 H /HPF Urine WBC 5-10 H /HPF Urine Squamous Epithelial Cells 2-5 /HPF Urine Crystals PRESENT H /LPF Urine Amorphous Sediment MOD MIGUEL URATES H /LPF Urine Bacteria MODERATE H /HPF Urine Casts NONE /LPF Urine Mucus NEGATIVE /LPF Urine Culture Indicated YES My Orders Orders - JOSE ARMSTRONG DO Ed Iv/Invasive Line Start (06/01/19 21:22) Monitor-Rhythm Ecg Trace Only (06/01/19 21:22) Ct Abd/Pelvis Wo(Kidney Stone) (06/01/19 21:22) Abdomen, Flat & Upright/Decub (06/01/19 21:22) Cbc With Automated Diff (06/01/19 21:22) Comprehensive Metabolic Panel (06/01/19 21:22) Magnesium (06/01/19 21:22) Protime With Inr (06/01/19 21:22) Partial Thromboplastin Time (06/01/19 21:22) Ua Culture If Indicated (06/01/19 21:22) Ed Iv/Invasive Line Start (06/01/19 23:33) Lactated Ringers (Lr 1000 Ml Iv Solution (06/01/19 23:33) Urine Culture (06/01/19 23:50) Nitrofurantoin Capsule,Macro (Macrobid C (06/02/19 01:00) Medications Given in ED Current Medications Medications Dose Ordered Sig/Amanda Route Start Time Stop Time Status Last Admin Dose Admin Lactated Ringer's 1,000 ml @ 0 mls/hr Q0M ONCE IV 06/01/19 23:33 06/01/19 23:34 DC 06/01/19 23:50 0 MLS/HR Vital Signs/I&O 06/01/19 21:04 Temp 98.4 Pulse 77 Resp 18 B/P (MAP) 112/74 (87) Pulse Ox 96 O2 Delivery Room Air Capillary Refill : Less Than 3 Seconds Blood Pressure Mean: 87 Progress Note : Progress Note UNEVENTFUL ER STAY NO BLEEDING DURING ER STAY Diagnostic Imaging Comments ABDOMEN XRAYS--NO ACUTE PROCESS, PENDING RADIOLOGIST REPORT CT ABDOMEN / PELVIS--BLADDER WALL THICKENED, INTRARENAL STONE, NO OTHER ACUTE PROCESS, PER [facility] VIA FAX [id number] Reviewed: Reviewed by Me Departure Impression Primary Impression: Post-menopausal bleeding Additional Impression: Urinary tract infection Disposition: HOME, SELF-CARE Condition: Stable Departure-Patient Inst. Referrals: NO,LOCAL PHYSICIAN (PCP) Primary Care Physician [facility] Patient Instructions: Urinary Tract Infection, Adult (DC), Bleeding After Menopause Add. Discharge Instructions: LOTS OF CLEAR LIQUIDS--NO COFFEE, POP OR TEA FOLLOW UP WITH [facility] THIS WEEK FOR FURTHER CARE All discharge instructions reviewed with patient and/or family. Voiced understanding. Scripts Nitrofurantoin Monohyd/M-Cryst (Macrobid 100 mg Capsule) 100 Mg Capsule 100 MG PO BID, #20 CAP Prov: JOSE ARMSTRONG DO 06/02/19 JOSE ARMSTRONG DO Jun 01, 2019 23:56
[2019-06-02 00:20] LABS: COLOR,URINE YELLOW
[2019-06-02 00:21] LABS: AMORPHOUS SEDIMENT,UR MOD AMOR URATES /LPF; BACTERIA,URINE MODERATE /HPF; BILIRUBIN,URINE NEGATIVE (NEGATIVE); CLARITY,URINE SL CLOUDY; GLUCOSE, URINE (UA) 1+ (NEGATIVE); KETONES,URINE NEGATIVE (NEGATIVE); LEUKOCYTE ESTERASE ,URINE 1+ (NEGATIVE); NITRITE,URINE NEGATIVE (NEGATIVE); PH,URINE 5 (5-9); PROTEIN,URINE 3+ (NEGATIVE); UROBILINOGEN,URINE NORMAL (NORMAL)
[2019-06-02] MEDS ORDERED: NITR-65 PO (00:54)
[2019-06-02] MEDS ORDERED: NITROFURANTOIN 100 MG (MACROBID) CAPSULE PO ONE (01:00)
[2019-06-02 01:06] VITALS: BP 116/64
--- NOTE | 2019-06-02 06:49 | Diagnostic Imaging Report ---
INDICATION: Hematuria. Two views were obtained. FINDINGS: The lung bases are clear. Bowel gas pattern is nonspecific. There are bilateral kidney stones, right greater than left. There are degenerative changes in the spine. IMPRESSION: Bilateral nephrolithiasis, right greater than left Nonspecific bowel gas pattern Dictated by: Dictated on workstation # [id number]
--- NOTE | 2019-06-02 07:05 | Diagnostic Imaging Report ---
PROCEDURE: CT urinary tract, rule out kidney stone. TECHNIQUE: Multiple contiguous axial images were obtained through the abdomen and pelvis without the use of intravenous contrast. Auto Exposure Controls were utilized during the CT exam to meet ALARA standards for radiation dose reduction. INDICATION: Hematuria FINDINGS: The heart size is normal. There are coronary artery calcifications. There is minimal dependent atelectasis in the lung bases. The liver is normal in size without focal lesions. Gallbladder is unremarkable. There is no biliary ductal dilatation. Spleen is normal. The pancreas and adrenal glands are unremarkable. Left kidney is normal in appearance. There are several nonobstructing stones in the right kidney largest measuring up to 9 mm. There is however no evidence of obstructive uropathy. There is a 3.5 cm infrarenal abdominal aortic aneurysm. Bowel gas pattern is nonspecific. The appendix is normal. There is no free air. There is no ascites. There are no focal inflammatory changes. Bladder is incompletely distended. There is no pelvic mass or adenopathy. There are degenerative changes in the spine. IMPRESSION: Several nonobstructing right renal calculi, the largest measuring up to 9 mm. There is however no evidence of obstructive uropathy. 3.5 cm infrarenal abdominal aortic aneurysm. Dictated by: Dictated on workstation # [id number]
== END 2019-06-02 01:06 | disposition home or self-care (01) ==
LOC: EDUNIT# 20:37 → ER 20:38
DX: N95.0 Postmenopausal bleeding (principal); N39.0 Urinary tract infection, site not specified; I25.2 Old myocardial infarction; E11.40 Type 2 diabetes mellitus with diabetic neuropathy, unspecified; F17.210 Nicotine dependence, cigarettes, uncomplicated; Z88.0 Allergy status to penicillin
CPT/HCPCS: 36415; 74019; 74176; 80053; 81000; 83735; 85025; 85610; 85730; 87088; 93041

== ENCOUNTER 2019-07-13 10:27 | Emergency (ER) | payer SELFPAY ==
[~2019-07-13] VITALS: Ht 160 cm; Wt 81.0 kg
[~2019-07-13 10:27] MED LIST: NITR-65 PO
[2019-07-13] MEDS ORDERED: HYDROcodone/APAP 5 MG/325 MG (LORTAB) TAB PO ONE (11:30)
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
[2019-07-13] MEDS ORDERED: NAPR-1071 PO (11:33)
[2019-07-13] MEDS ORDERED: ACHD5005 PO (11:33)
--- NOTE | 2019-07-13 12:00 | Diagnostic Imaging Report ---
PROCEDURE: CT pelvis without contrast. TECHNIQUE: Multiple contiguous axial images were obtained through the pelvis without the use of intravenous contrast. Sagittal and coronal reformations were performed. Auto Exposure Controls were utilized during the CT exam to meet ALARA standards for radiation dose reduction. INDICATION: Left leg pain. FINDINGS: Bilateral sacral ala are unremarkable. Superior and inferior pubic rami are intact. Femoral acetabular alignment is normal bilaterally. There are osteoarthritic changes involving bilateral hips with joint space narrowing and spurring present. No definite hip fracture is detected. IMPRESSION: Degenerative changes of bilateral hips. No acute bony abnormality is detected. Dictated by: Dictated on workstation # [id number]
--- NOTE | 2019-07-13 12:03 | Diagnostic Imaging Report ---
PROCEDURE: CT lumbar spine without contrast. TECHNIQUE: Multiple contiguous axial images were obtained through the lumbar spine without the use of intravenous contrast. Sagittal and coronal reformations were then performed. Auto Exposure Controls were utilized during the CT exam to meet ALARA standards for radiation dose reduction. INDICATION: Pain extending into the left leg. Curvature and alignment of the lumbar spine is normal. Vertebral body heights are maintained. No acute compression fracture is detected. There is multilevel degenerative disc disease, greatest at L3-L4 level where there is significant disc space narrowing as well as vacuum disc phenomena and endplate osteophyte formation. Trefoil stenosis to the canal at L3-4 and L4-L5 levels is noted. There are multiple calculi within the right kidney measuring 5 and 8 mm. There is an infrarenal abdominal aortic aneurysm measuring up to 3.4 cm AP diameter. There is some medial displaced linear calcification within the aneurysm which can be seen with dissection. This was present on prior exam from 06/01/2019. IMPRESSION: 1. Lumbar spondylosis. No acute bony abnormality is detected. There does appear to be multilevel spinal stenosis. 2. Right renal calculi. 3. Abdominal aortic aneurysm. There is some medially displaced calcification within the lumen of the aneurysmal aorta which can be seen with dissection. If clinically indicated, postcontrast CT could be performed for better characterization. No other significant abnormality is seen. Dictated by: Dictated on workstation # [id number]
[2019-07-13] MEDS ORDERED: IOHEXOL 350 MG/ML 100 ML (OMNIPAQUE 350) VIAL IV ONE (12:45)
[2019-07-13] MEDS ORDERED: NS 100 ML (IVPB) BAG IV ONE (12:45)
[2019-07-13] MEDS ORDERED: HOLD METFORMIN - RECEIVED CONTRAST 20 ML VIAL IV SCH (12:45)
[2019-07-13] MEDS ORDERED: CATHETER FLUSH 10 ML SYR IV PRN (12:45)
--- NOTE | 2019-07-13 13:22 | Diagnostic Imaging Report ---
PROCEDURE: CT Angio Abdomen/Pelvis with. TECHNIQUE: Multiple contiguous axial images were obtained through the abdomen and pelvis after the uneventful bolus administration of intravenous contrast. Sagittal and coronal MIP reconstructions with then performed. INDICATION: Abnormal recent CT of the lumbar spine demonstrating abdominal aortic aneurysm and questionable dissection. Correlation is made with CT of the lumbar spine performed earlier the same day. FINDINGS: The lung bases are clear. Liver and gallbladder are unremarkable. No bile duct dilatation is seen. The pancreas and spleen are unremarkable. No adrenal mass is detected. Nonobstructing calculi in the right kidney are again noted. There is no hydronephrosis. Left kidney is unremarkable apart from a tiny cortical low density consistent with a cyst. There is plaquing throughout the abdominal aorta. The infrarenal abdominal aorta does show some aneurysmal dilatation measuring 3.2 cm in AP diameter. The medially displaced calcification noted on prior imaging does correspond to a chronic-appearing dissection flap. This involves a very short segment of the aorta. No periaortic fluid collection or evidence of rupture is seen. Small and large bowel loops are normal caliber. There is no ascites. Bladder and uterus are unremarkable. IMPRESSION: 1. Infrarenal abdominal aortic aneurysm. There is a calcified intimal flap involving the infrarenal abdominal aorta over a short segment consistent with a chronic dissection flap. No perianeurysmal fluid collection or evidence of rupture is seen. 2. Nonobstructing right renal calculi. Dictated by: Dictated on workstation # [id number]
[2019-07-13 13:56] VITALS: BP 131/75
== END 2019-07-13 13:56 | disposition home or self-care (01) ==
LOC: EDUNIT# 10:27 → ER 10:28
DX: M54.16 Radiculopathy, lumbar region (principal); I10 Essential (primary) hypertension; E11.40 Type 2 diabetes mellitus with diabetic neuropathy, unspecified; I25.2 Old myocardial infarction; I25.10 Atherosclerotic heart disease of native coronary artery without angina pectoris; F17.210 Nicotine dependence, cigarettes, uncomplicated; Z95.5 Presence of coronary angioplasty implant and graft; Z95.9 Presence of cardiac and vascular implant and graft, unspecified; Z87.828 Personal history of other (healed) physical injury and trauma; Z88.0 Allergy status to penicillin
CPT/HCPCS: 72131; 72192; 74174

== ENCOUNTER 2019-08-01 22:38 | Emergency (ER) | payer SELFPAY ==
[~2019-08-01] VITALS: Ht 160 cm; Wt 79.9 kg
[~2019-08-01 22:38] MED LIST changes: +ACHD5005 PO; +NAPR-1071 PO
[2019-08-01] MEDS ORDERED: NS IV 1000 ML 1,000 ML IV SCH (23:02)
--- NOTE | 2019-08-01 23:08 | ED GU-Female ---
General Stated Complaint: HEAVY VAGINAL BLEEDING Source: patient Exam Limitations: no limitations History of Present Illness Date Seen by Provider: Aug 01, 2019 Time Seen by Provider: 22:51 Initial Comments Patient presents to ER by private conveyance with chief complaint of vaginal bleeding for the past 3-4 months. She has been the ER once and was told to follow up outpatient. She went to Dr. Perez who did a biopsy about a month ago. She has not followed up for results. She says she missed the appointment and never rescheduled. Today she decides she wants it sorted out because she is having heavy bleeding at the level of period. She is not having any chest pain but she does feel a little more short of breath when she exerts herself walking upstairs for protracted periods. She denies a history of anemia. She said she had a history of coronary disease with a heart attack and stent in 2010. She does not take any blood thinners or NSAIDs. She says she does not take any medicines routinely but she did get some gabapentin for her sciatica that she uses occasionally for the past month. She also has had headaches for the past 3 or 4 months. She occasionally will use Tylenol for it. She does not want anything for now. ER note from May 2019 demonstrates the patient reported for the same reason having vaginal bleeding. She stated at that time she had biopsies done in [place] 4-5 months prior but never followed up for results. On that visit the patient had unremarkable CT imaging of her abdomen and pelvis. To 3 weeks ago the patient presents to ER for back pain and had a lumbar spine CT done which demonstrated a possible intimal rupture of a abdominal aortic aneurysm. CT angiogram was obtained showing a chronic intraluminal calcified flap. No evidence of acute dissection. There are no pathology results available to review. Allergies and Home Medications Allergies Uncoded Allergies: PENICILLIN (Allergy, Unknown, 01/23/19) Home Medications Hydrocodone Bit/Acetaminophen 1 Tab Tab, 1 EACH PO Q4-6HR PRN for PAIN-MODERATE Prescribed by: NATHALIE PATRICIA on 07/13/19 1133 Naproxen 500 Mg Tablet, 500 MG PO BID PRN for PAIN-SEVERE Prescribed by: NATHALIE PATRICIA on 07/13/19 1133 Nitrofurantoin Monohyd/M-Cryst 100 Mg Capsule, 100 MG PO BID Prescribed by: JOSE ARMSTRONG on 06/02/19 0054 Patient Home Medication List Home Medication List Reviewed: Yes Review of Systems Review of Systems Constitutional: No chills, No diaphoresis EENTM: No ear discharge, No ear pain Respiratory: No cough, No dyspnea on exertion Cardiovascular: No chest pain, No palpitations Gastrointestinal: see HPI, abdominal pain (low pelvic, abdominal cramping) Genitourinary: denies burning, denies discharge Past [place] Hx Patient Social History Alcohol Use: Denies Use Recreational Drug Use: No Smoking Status: Current Everyday Smoker Type Used: Cigarettes (2 ppd) 2nd Hand Smoke Exposure: No Recent Foreign Travel: No Contact w/Someone Who Travel: No Recent Hopitalizations: No Seasonal Allergies Seasonal Allergies: No Past Medical History Surgeries: Yes (CARDIAC CATH WITH STENT X 1; ? VAGINAL BIOPSY ? ) Cardiac, Coronary Stent Respiratory: No Cardiac: Yes (HEART ATTACK 2010; STENT X 1 ) Coronary Artery Disease, Heart Attack, Hypertension Neurological: Yes Neuropathy Female Reproductive Disorders: Denies [employer] History: Menopausal Sexually Transmitted Disease: No Genitourinary: No Gastrointestinal: No Musculoskeletal: No Endocrine: Yes Diabetes, Non-Insulin dep HEENT: Yes ("bleeding behind retina") Cancer: No Psychosocial: No Integumentary: No Blood Disorders: No Adverse Reaction/Blood Tranf: No Physical Exam Vital Signs Vital Signs - First Documented 08/01/19 22:44 Temp 34.7 Pulse 96 Resp 18 B/P (MAP) 144/95 (111) Pulse Ox 98 O2 Delivery Room Air Capillary Refill : Height, Weight, BMI Height: 5'0" Weight: 182lbs. oz. 82.145922mq; 31.00 BMI Method:Stated General Appearance: WD/WN, no apparent distress HEENT: PERRL/EOMI, pharynx normal Neck: non-tender, full range of motion Cardiovascular: normal peripheral pulses, regular rate, rhythm Respiratory: lungs clear, normal breath sounds, no respiratory distress, no accessory muscle use Gastrointestinal: normal bowel sounds, non tender Neurologic/Psychiatric: alert, normal mood/affect, oriented x 3 Skin: normal color, warm/dry Progress/Results/Core Measures Suspected Sepsis SIRS Temperature: Pulse: Respiratory Rate: Laboratory Tests 08/01/19 23:03: White Blood Count 9.8 Blood Pressure / Mean: Laboratory Tests 08/01/19 23:03: Creatinine 0.81, Platelet Count 379, Total Bilirubin 0.2 Results/Orders Lab Results Laboratory Tests Test 08/01/19 23:03 08/02/19 01:35 Range/Units White Blood Count 9.8 4.3-11.0 10^3/uL Red Blood Count 4.33 L 4.35-5.85 10^6/uL Hemoglobin 13.2 11.5-16.0 G/DL Hematocrit 40 35-52 % Mean Corpuscular Volume 91 80-99 FL Mean Corpuscular Hemoglobin 30 25-34 PG Mean Corpuscular Hemoglobin Concent 33 32-36 G/DL Red Cell Distribution Width 14.3 10.0-14.5 % Platelet Count 379 130-400 10^3/uL Mean Platelet Volume 9.6 7.4-10.4 FL Neutrophils (%) (Auto) 59 42-75 % Lymphocytes (%) (Auto) 30 12-44 % Monocytes (%) (Auto) 6 0-12 % Eosinophils (%) (Auto) 4 0-10 % Basophils (%) (Auto) 1 0-10 % Neutrophils # (Auto) 5.7 1.8-7.8 X 10^3 Lymphocytes # (Auto) 3.0 1.0-4.0 X 10^3 Monocytes # (Auto) 0.6 0.0-1.0 X 10^3 Eosinophils # (Auto) 0.4 H 0.0-0.3 10^3/uL Basophils # (Auto) 0.1 0.0-0.1 10^3/uL Sodium Level 139 135-145 MMOL/L Potassium Level 4.2 3.6-5.0 MMOL/L Chloride Level 106 98-107 MMOL/L Carbon Dioxide Level 23 21-32 MMOL/L Anion Gap 10 5-14 MMOL/L Blood Urea Nitrogen 14 7-18 MG/DL Creatinine 0.81 0.60-1.30 MG/DL Estimat Glomerular Filtration Rate > 60 BUN/Creatinine Ratio 17 Glucose Level 242 H 70-105 MG/DL Calcium Level 9.3 8.5-10.1 MG/DL Corrected Calcium 9.3 8.5-10.1 MG/DL Total Bilirubin 0.2 0.1-1.0 MG/DL Aspartate Amino Transf (AST/SGOT) 14 5-34 U/L Alanine Aminotransferase (ALT/SGPT) 9 0-55 U/L Alkaline Phosphatase 70 40-136 U/L Total Protein 6.8 6.4-8.2 GM/DL Albumin 4.0 3.2-4.5 GM/DL Urine Color DELORIS H Urine Clarity SLIGHTLY CLOUDY Urine pH 5 5-9 Urine Specific [place] 1.020 1.016-1.022 Urine Protein 3+ H NEGATIVE Urine Glucose (UA) 4+ H NEGATIVE Urine Ketones NEGATIVE NEGATIVE Urine Nitrite NEGATIVE NEGATIVE Urine Bilirubin NEGATIVE NEGATIVE Urine Urobilinogen NORMAL NORMAL MG/DL Urine Leukocyte Esterase 1+ H NEGATIVE Urine RBC (Auto) 5+ H NEGATIVE Urine RBC >100 H /HPF Urine WBC RARE /HPF Urine Squamous Epithelial Cells 0-2 /HPF Urine Crystals NONE /LPF Urine Bacteria NEGATIVE /HPF Urine Casts NONE /LPF Urine Mucus NEGATIVE /LPF Urine Culture Indicated NO My Orders Orders - JOSEY MENG Ua Culture If Indicated (08/01/19 22:40) Cbc With Automated Diff (08/01/19 22:40) Comprehensive Metabolic Panel (08/01/19 22:40) Ed Iv/Invasive Line Start (08/01/19 23:02) Ns Iv 1000 Ml (Sodium Chloride 0.9%) (08/01/19 23:02) Vital Signs/I&O 08/01/19 22:44 Temp 34.7 Pulse 96 Resp 18 B/P (MAP) 144/95 (111) Pulse Ox 98 O2 Delivery Room Air Capillary Refill : Progress Note : Time: 23:26 Progress Note We'll give the patient a liter fluids to see the results of her headache. She has declined anything for the pain of her headache or abdominal cramping. We have encouraged her to use Tylenol or NSAIDs. We have also encouraged her to follow-up with Dr. Perez for results of her pathology. Departure Impression Primary Impression: Abnormal vaginal bleeding in postmenopausal patient Disposition: 01 HOME, SELF-CARE Condition: Stable Departure-Patient Inst. Decision time for Depature: 02:20 Referrals: NO,LOCAL PHYSICIAN (PCP) Primary Care Physician GUNNER KAY DO Patient Instructions: Bleeding After Menopause Add. Discharge Instructions: Please call Dr. Perez office tomorrow during business hours and request follow- up for the biopsy that was obtained earlier. Return to the nearest ER if you begin to experience chest pain, shortness of breath or other worrisome symptoms. Copy Copies To 1: SEALGUNNER Bowser TITUS J Aug 01, 2019 23:08 POS
[2019-08-01 23:10] LABS: BASOPHILS # (AUTO) 0.1 10^3/uL (0.0-0.1); BASOPHILS % (AUTO) 1 % (0-10); EOSINOPHILS # (AUTO) 0.4 10^3/uL (0.0-0.3); EOSINOPHILS % (AUTO) 4 % (0-10); HEMATOCRIT 40 % (35-52); HEMOGLOBIN 13.2 G/DL (11.5-16.0); LYMPHOCYTES % (AUTO) 30 % (12-44); MEAN CORPUSCULAR HEMOGLOBIN 30 PG (25-34); MEAN CORPUSCULAR HGB CONC 33 G/DL (32-36); MEAN CORPUSCULAR VOLUME 91 FL (80-99); MEAN PLATELET VOLUME 9.6 FL (7.4-10.4); MONOCYTES # (AUTO) 0.6 X 10^3 (0.0-1.0); MONOCYTES % (AUTO) 6 % (0-12); NEUTROPHILS # (AUTO) 5.7 X 10^3 (1.8-7.8); NEUTROPHILS % (AUTO) 59 % (42-75); PLATELET COUNT 379 10^3/uL (130-400); RED CELL DISTRIBUTION WIDTH 14.3 % (10.0-14.5); WHITE BLOOD COUNT 9.8 10^3/uL (4.3-11.0)
[2019-08-01 23:31] LABS: BUN/CREATININE RATIO 17; CARBON DIOXIDE 23 MMOL/L (21-32); CHLORIDE 106 MMOL/L (98-107); CREATININE SERUM 0.81 MG/DL (0.60-1.30); POTASSIUM 4.2 MMOL/L (3.6-5.0); SODIUM 139 MMOL/L (135-145)
[2019-08-01 23:32] LABS: ALANINE AMINOTRANSFERASE 9 U/L (0-55); ALKALINE PHOSPHATASE 70 U/L (40-136); BILIRUBIN,TOTAL 0.2 MG/DL (0.1-1.0); CALCIUM 9.3 MG/DL (8.5-10.1); GFR ESTIMATED > 60; GLUCOSE 242 MG/DL (70-105); TOTAL PROTEIN 6.8 GM/DL (6.4-8.2)
[2019-08-02 01:42] LABS: BILIRUBIN,URINE NEGATIVE (NEGATIVE); CLARITY,URINE SLIGHTLY CLOUDY; COLOR,URINE AMBER; GLUCOSE, URINE (UA) 4+ (NEGATIVE); KETONES,URINE NEGATIVE (NEGATIVE); LEUKOCYTE ESTERASE ,URINE 1+ (NEGATIVE); NITRITE,URINE NEGATIVE (NEGATIVE); PH,URINE 5 (5-9); PROTEIN,URINE 3+ (NEGATIVE)
[2019-08-02 01:57] LABS: BACTERIA,URINE NEGATIVE /HPF; RBC,URINE >100 /HPF; SQUAMOUS EPITHELIAL CELL,UR 0-2 /HPF; WBC,URINE RARE /HPF
[2019-08-02 02:38] VITALS: BP 154/87
--- OUTSIDE RECORDS SUMMARY | 2019-08-25 17:31 | XMS REPORT | Continuity of Care Document ---
Author Organization Unknown POS Address Unknown SP Phone Unavailable SP Allergies Active Description Code Type Severity POS Reaction Onset Reported/Identified POS to Patient Clinical Status POS Yes PENICILLIN PENICILLIN Unknown SP N/A 01/23/2019 SP Medications There is no data. Problems Date Dx Coded Attending Type Code POS Diagnosed By POS 01/23/2019 JOSE TAI MD Ot E11. 9 SP 2 DIABETES MELLITUS WITHOUT COMPLIC SP 01/23/2019 JOSE TAI MD A Ot F17.210 SP NICOTINE DEPENDENCE, CIGARETTES, UNCOMPL SP 01/23/2019 JOSE TAI MD A Ot I25. 2 SP MYOCARDIAL INFARCTION SP 01/23/2019 JOSE TAI MD A Ot R20. 0 SP OF SKIN SP 01/23/2019 YOUNG TAI MDNT A Ot R32 SP URINARY INCONTINENCE SP 01/23/2019 YOUNG TAI MDNT A Ot Z88. 0 SP STATUS TO PENICILLIN SP 01/23/2019 JOSE TAI MD A Ot Z95. 5 SP OF CORONARY ANGIOPLASTY IMPLANT SP 01/25/2019 JOSE TAI MD A Ot E11. 9 SP 2 DIABETES MELLITUS WITHOUT COMPLIC SP 01/25/2019 JOSE TAI MD A Ot F17.210 SP NICOTINE DEPENDENCE, CIGARETTES, UNCOMPL SP 01/25/2019 JOSE TAI MD A Ot I25. 2 SP MYOCARDIAL INFARCTION SP 01/25/2019 JOSE TAI MD A Ot R20. 0 SP OF SKIN SP 01/25/2019 ABIDA PERERA JOSE A Ot R32 SP URINARY INCONTINENCE SP 01/25/2019 JOSE TAI MD A Ot Z88. 0 SP STATUS TO PENICILLIN SP 01/25/2019 JOSE TAI MD A Ot Z95. 5 SP OF CORONARY ANGIOPLASTY IMPLANT SP 06/02/2019 PATTI DO JOSE K Ot E11.40 SP 2 DIABETES MELLITUS WITH DIABETIC N SP 06/02/2019 PATTI DO JOSE K Ot F17.210 SP DEPENDENCE, CIGARETTES, UNCOMPL SP 06/02/2019 PATTI DO, JOSE K Ot I25.2 OLD SP INFARCTION SP 06/02/2019 PATTI DO, JOSE K Ot N39.0 SP TRACT INFECTION, SITE NOT SPECIF SP 06/02/2019 PATTI DO, JOSE K Ot N95.0 SP BLEEDING SP 06/02/2019 PATTI DO, JOSE K Ot R31.9 SP UNSPECIFIED SP 06/02/2019 PATTI DO, JOSE K Ot Z88.0 SP STATUS TO PENICILLIN SP 06/04/2019 PATTI DO, JOSE K Ot E11.40 SP 2 DIABETES MELLITUS WITH DIABETIC N SP 06/04/2019 PATTI DO, JOSE K Ot F17.210 SP DEPENDENCE, CIGARETTES, UNCOMPL SP 06/04/2019 PATTI DO, JOSE K Ot I25.2 OLD SP INFARCTION SP 06/04/2019 PATTI DO, JOSE K Ot N39.0 SP TRACT INFECTION, SITE NOT SPECIF SP 06/04/2019 PATTI DO, JOSE K Ot N95.0 SP BLEEDING SP 06/04/2019 PATTI DO, JOSE K Ot R31.9 SP UNSPECIFIED SP 06/04/2019 PATTI DO, JOSE K Ot Z88.0 SP STATUS TO PENICILLIN SP 06/08/2019 PATTI DO, JOSE K Ot E11.40 SP 2 DIABETES MELLITUS WITH DIABETIC N SP 06/08/2019 PATTI DO, JOSE K Ot F17.210 SP DEPENDENCE, CIGARETTES, UNCOMPL SP 06/08/2019 PATTI DO, JOSE K Ot I25.2 OLD SP INFARCTION SP 06/08/2019 PATTI DO, JOSE K Ot N39.0 SP TRACT INFECTION, SITE NOT SPECIF SP 06/08/2019 PATTI DO, JOSE K Ot N95.0 SP BLEEDING SP 06/08/2019 PATTI DO, JOSE K Ot R31.9 SP UNSPECIFIED SP 06/08/2019 PATTI DO, JOSE K Ot Z88.0 SP STATUS TO PENICILLIN SP 07/13/2019 NATHALIE PATRICIA APRN Ot E11.40 SP TYPE 2 DIABETES MELLITUS WITH DIABETIC N SP 07/13/2019 NATHALIE PATRICIA APRN Ot F17.210 SP NICOTINE DEPENDENCE, CIGARETTES, UNCOMPL SP 07/13/2019 NATHALIE PATRICIA PI[employer]O [employer] Ot I10 SP (PRIMARY) HYPERTENSION SP 07/13/2019 NATHALIE PATRICIA [employer] Ot 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 SP 07/13/2019 NATHALIE PATRICIA APRN Ot I25 .2 SP MYOCARDIAL INFARCTION SP 07/13/2019 NATHALIE PATRICIA APRN Ot M54.16 SP RADICULOPATHY, LUMBAR REGION SP 07/13/2019 NATHALIE PATRICIA APRN Ot M54 .5 SP BACK PAIN SP 07/13/2019 NATHALIE PATRICIA APRN Ot Z87.828 SP PERSONAL HISTORY OF OTH (HEALED) PHYSICA SP 07/13/2019 NATHALIE PATRICIA APRN Ot Z88 .0 SP STATUS TO PENICILLIN SP 07/13/2019 NATHALIE PATRICIA APRN Ot Z95 .5 SP OF CORONARY ANGIOPLASTY IMPLANT SP 07/13/2019 ANTHALIE PATRICIA APRN Ot Z95 .9 SP OF CARDIAC AND VASCULAR IMPLANT SP 07/17/2019 NATHALIE PATRICIA APRN Ot E11.40 SP TYPE 2 DIABETES MELLITUS WITH DIABETIC N SP 07/17/2019 NATHALIE PATRICIA APRN Ot F17.210 SP NICOTINE DEPENDENCE, CIGARETTES, UNCOMPL SP 07/17/2019 NATHALIE PATRICIA APRN Ot I10 SP (PRIMARY) HYPERTENSION SP 07/17/2019 NATHALIE PATRICIA APRN Ot 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 40 SP 2 DIABETES MELLITUS WITH DIABETIC N SP 08/06/2019 JOSEY MENG MD Ot F17.210 SP NICOTINE DEPENDENCE, CIGARETTES, UNCOMPL SP 08/06/2019 JOSEY MENG MD Ot I10 SP (PRIMARY) HYPERTENSION SP 08/06/2019 JOSEY MENG MD Ot I25. 10 SP HEART DISEASE OF [place] CORONARY SP 08/06/2019 JOSEY MENG MD Ot I25. 2 SP MYOCARDIAL INFARCTION SP 08/06/2019 JOSEY MENG MD Ot N93. 9 SP UTERINE AND VAGINAL BLEEDING, U SP 08/06/2019 JOSEY MENG MD J Ot N95. 0 SP BLEEDING SP 08/06/2019 JOSEY MENG MD Ot Z88. 0 SP STATUS TO PENICILLIN SP 08/06/2019 JOSEY MENG MD Ot Z95. 5 SP OF CORONARY ANGIOPLASTY IMPLANT SP 08/16/2019 JOSEY MENG MD Ot E11. 40 SP 2 DIABETES MELLITUS WITH DIABETIC N SP 08/16/2019 JOSEY MENG MD Ot F17.210 SP NICOTINE DEPENDENCE, CIGARETTES, UNCOMPL SP 08/16/2019 JOSEY MENG MD Ot I10 SP (PRIMARY) HYPERTENSION SP 08/16/2019 JOSEY MENG MD Ot I25. 10 SP HEART DISEASE OF [place] CORONARY SP 08/16/2019 JOSEY MENG MD Ot I25. 2 SP MYOCARDIAL INFARCTION SP 08/16/2019 JOSEY MENG MD Ot N93. 9 SP UTERINE AND VAGINAL BLEEDING, U SP 08/16/2019 JOSEY MENG MD J Ot N95. 0 SP BLEEDING SP 08/16/2019 JOSEY MENG MD Ot Z88. 0 SP STATUS TO PENICILLIN SP 08/16/2019 JOSEY MENG MD Ot Z95. 5 SP OF CORONARY ANGIOPLASTY IMPLANT SP Procedures There is no data. Results Test Result Range POS Complete urinalysis with reflex to cultu re - 01/23/19 15:08 POS Urine color determination YELLOW NRG SP Urine clarity determination SLIGHTLY CLOUDY NRG SP Urine pH measurement by test strip 7 5-9 SP Specific gravity of urine by test strip 1.010 1.016-1.022 SP Urine protein assay by test strip, semi-quantitative 3+ SP Urine glucose detection by automated test strip 3+ NEGATIVE SP Erythrocytes detection in urine sediment by light micr oscopy 3+ SP NEGATIVE SP Urine ketones detection by automated test strip NE GATIVE SP Urine nitrite detection by test strip NEGATIVE NEGATIVE SP Urine total bilirubin detection by test strip NEGA TIVE SP Urine urobilinogen measurement by automated test strip (mass/volume) SP NORMAL SP Urine leukocyte esterase detection by dipstick NEG ATIVE SP Automated urine sediment erythrocyte cou nt by microscopy (number/high power SP [HPF] NRG SP Automated urine sediment leukocyte count by microscopy (number/high power field) SP RARE NRG SP Bacteria detection in urine sediment by light microsco py TRACE SP NRG SP Squamous epithelial cells detection in u rine sediment by light microscopy SP 0-2 NRG SP Crystals detection in urine sediment by light microsco py PRESENT SP NRG SP Casts detection in urine sediment by light microscopy PRESENT SP NRG SP Mucus detection in urine sediment by light microscopy NEGATIVE SP NRG SP Complete urinalysis with reflex to culture NO NRG SP Amorphous sediment detection in urine sediment by ligh t microscopy FEW SPAMOR PHOSPHATE NRG SP Coarse granular casts detection in urine sediment by l ight microscopy SP NRG SP Complete blood count (CBC) with automate d white blood cell (WBC) differential - POS 15:15 Blood leukocytes automated count (number/volume) 6.3 10*3/uL POS 4.3-11.0 SP Blood erythrocytes automated count (number/volume) 4.57 10*6/uL SP 4.35-5.85 SP Venous blood hemoglobin measurement (mass/volume) 13.7 g/dL SP16.0 Blood hematocrit (volume fraction) 41 % 35-52 SP Automated erythrocyte mean corpuscular volume 90 [ foz_us] SP99 Automated erythrocyte mean corpuscular h emoglobin (mass per erythrocyte) SP 30 pg 25-34 SP Automated erythrocyte mean corpuscular h emoglobin concentration measurement SP 34 g/dL 32-36 SP Automated erythrocyte distribution width ratio 14. 9 % 10.0- SP Automated blood platelet count (count/volume) 292 10*3/uL SP400 Automated blood platelet mean volume measurement 10.2 [foz_us] SP 7.4-10.4 SP Automated blood neutrophils/100 leukocytes 49 % 42-75 SP Automated blood lymphocytes/100 leukocytes 39 % 12-44 SP Blood monocytes/100 leukocytes 7 % 0-12 SP Automated blood eosinophils/100 leukocytes 5 % 0-10 SP Automated blood basophils/100 leukocytes 1 % 0-10 SP Blood neutrophils automated count (number/volume) 3.1 10*3 SP7.8 Blood lymphocytes automated count (number/volume) 2.5 10*3 SP4.0 Blood monocytes automated count (number/volume) 0. 4 10*3 SP1.0 Automated eosinophil count 0.3 10*3/uL 0 .0-0.3 SP Automated blood basophil count (count/volume) 0.0 10*3/uL SP0.1 Comprehensive metabolic panel - 01/23/19 15:15 POS Serum or plasma sodium measurement (moles/volume) 143 mmol/L SP 135-145 SP Serum or plasma potassium measurement (moles/volume) 3.9 mmol/L SP 3.6-5.0 SP Serum or plasma chloride measurement (moles/volume) 108 mmol/L SP 98-107 SP Carbon dioxide 25 mmol/L 21-32 SP Serum or plasma anion gap determination (moles/volume) 10 mmol/L SP 5-14 SP Serum or plasma urea nitrogen measurement (mass/volume ) 12 mg/dL SP 7-18 SP Serum or plasma creatinine measurement (mass/volume) 0.65 mg/dL SP 0.60-1.30 SP Serum or plasma urea nitrogen/creatinine mass ratio 18 NRG SP Serum or plasma creatinine measurement w ith calculation of estimated glomerular SP rate > NRG SP Serum or plasma glucose measurement (mass/volume) 99 mg/dL SP105 Serum or plasma calcium measurement (mass/volume) 10.4 mg/dL SP 8.5-10.1 SP Serum or plasma total bilirubin measurement (mass/volu me) 0.3 mg/dL SP 0.1-1.0 SP Serum or plasma alkaline phosphatase lesia surement (enzymatic activity/volume) SP 53 U/L 40-136 SP Serum or plasma aspartate aminotransfera se measurement (enzymatic SP 15 U/L 5-34 SP Serum or plasma alanine aminotransferase measurement (enzymatic activity/volume) SP 16 U/L 0-55 SP Serum or plasma protein measurement (mass/volume) 6.8 g/dL SP8.2 Serum or plasma albumin measurement (mass/volume) 3.9 g/dL SP4.5 CALCIUM CORRECTED 10.5 mg/dL 8.5-10.1 SP Complete blood count (CBC) with automate d white blood cell (WBC) differential - POS 21:22 Blood leukocytes automated count (number/volume) 8.7 10*3/uL POS 4.3-11.0 SP Blood erythrocytes automated count (number/volume) 4.44 10*6/uL SP 4.35-5.85 SP Venous blood hemoglobin measurement (mass/volume) 13.9 g/dL SP16.0 Blood hematocrit (volume fraction) 41 % 35-52 SP Automated erythrocyte mean corpuscular volume 92 [ foz_us] SP99 Automated erythrocyte mean corpuscular h emoglobin (mass per erythrocyte) SP 31 pg 25-34 SP Automated erythrocyte mean corpuscular h emoglobin concentration measurement SP 34 g/dL 32-36 SP Automated erythrocyte distribution width ratio 14. 1 % 10.0- SP Automated blood platelet count (count/volume) 309 10*3/uL SP400 Automated blood platelet mean volume measurement 10.2 [foz_us] SP 7.4-10.4 SP Automated blood neutrophils/100 leukocytes 51 % 42-75 SP Automated blood lymphocytes/100 leukocytes 39 % 12-44 SP Blood monocytes/100 leukocytes 7 % 0-12 SP Automated blood eosinophils/100 leukocytes 4 % 0-10 SP Automated blood basophils/100 leukocytes 0 % 0-10 SP Blood neutrophils automated count (number/volume) 4.4 10*3 SP7.8 Blood lymphocytes automated count (number/volume) 3.3 10*3 SP4.0 Blood monocytes automated count (number/volume) 0. 6 10*3 SP1.0 Automated eosinophil count 0.3 10*3/uL 0 .0-0.3 SP Automated blood basophil count (count/volume) 0.0 10*3/uL SP0.1 PT panel in platelet poor plasma by coag ulation assay - 06/01/19 21:22 POS Prothrombin time (PT) in platelet poor plasma by coagu lation assay SP s 12.2-14.7 SP INR in platelet poor plasma or blood by coagulation as say 1.0 SP 0.8-1.4 SP Activated partial thromboplastin time (a PTT) in platelet poor plasma POS assay - 06/01/19 21:22 Activated partial thromboplastin time (a PTT) in platelet poor plasma POS assay 28 s 24-35 SP Comprehensive metabolic panel - 06/01/19 21:22 POS Serum or plasma sodium measurement (moles/volume) 140 mmol/L SP 135-145 SP Serum or plasma potassium measurement (moles/volume) 3.8 mmol/L SP 3.6-5.0 SP Serum or plasma chloride measurement (moles/volume) 107 mmol/L SP 98-107 SP Carbon dioxide 22 mmol/L 21-32 SP Serum or plasma anion gap determination (moles/volume) 11 mmol/L SP 5-14 SP Serum or plasma urea nitrogen measurement (mass/volume ) 16 mg/dL SP 7-18 SP Serum or plasma creatinine measurement (mass/volume) 0.69 mg/dL SP 0.60-1.30 SP Serum or plasma urea nitrogen/creatinine mass ratio 23 NRG SP Serum or plasma creatinine measurement w ith calculation of estimated glomerular SP rate > NRG SP Serum or plasma glucose measurement (mass/volume) 124 mg/dL SP105 Serum or plasma calcium measurement (mass/volume) 9.7 mg/dL SP10.1 Serum or plasma total bilirubin measurement (mass/volu me) 0.5 mg/dL SP 0.1-1.0 SP Serum or plasma alkaline phosphatase lesia surement (enzymatic activity/volume) SP 61 U/L 40-136 SP Serum or plasma aspartate aminotransfera se measurement (enzymatic SP 10 U/L 5-34 SP Serum or plasma alanine aminotransferase measurement (enzymatic activity/volume) SP 10 U/L 0-55 SP Serum or plasma protein measurement (mass/volume) 6.9 g/dL SP8.2 Serum or plasma albumin measurement (mass/volume) 4.0 g/dL SP4.5 CALCIUM CORRECTED 9.7 mg/dL 8.5-10.1 SP Magnesium - 06/01/19 21:22 POS Magnesium 1.9 mg/dL 1.6-2.4 SP Complete urinalysis with reflex to cultu re - 06/01/19 23:50 POS Urine color determination YELLOW NRG SP Urine clarity determination SL CLOUDY N RG SP Urine pH measurement by test strip 5 5-9 SP Specific gravity of urine by test strip 1.025 1.016-1.022 SP Urine protein assay by test strip, semi-quantitative 3+ SP Urine glucose detection by automated test strip 1+ NEGATIVE SP Erythrocytes detection in urine sediment by light micr oscopy 5+ SP NEGATIVE SP Urine ketones detection by automated test strip NE GATIVE SP Urine nitrite detection by test strip NEGATIVE NEGATIVE SP Urine total bilirubin detection by test strip NEGA TIVE SP Urine urobilinogen measurement by automated test strip (mass/volume) SP NORMAL SP Urine leukocyte esterase detection by dipstick 1+ NEGATIVE SP Automated urine sediment erythrocyte cou nt by microscopy (number/high power SP [HPF] NRG SP Automated urine sediment leukocyte count by microscopy (number/high power field) SP [HPF] NRG SP Bacteria detection in urine sediment by light microsco py MODERATE SP NRG SP Squamous epithelial cells detection in u rine sediment by light microscopy SP 2-5 NRG SP Crystals detection in urine sediment by light microsco py PRESENT SP NRG SP Casts detection in urine sediment by light microscopy NONE SP Mucus detection in urine sediment by light microscopy NEGATIVE SP NRG SP Complete urinalysis with reflex to culture YES NRG SP Amorphous sediment detection in urine sediment by ligh t microscopy MOD SPAMOR URATES NRG SP Bacterial urine culture - 06/01/19 23:50 POS Bacterial urine culture 3 OR MORE NRG SP COLONY COUNT >100,000/ML NRG SP FTX;REPORTABLE SUGGESTING PROBABLE COLLECTION NRG SP FREE TEXT ENTRY 2 CONTAMINATION WITH SKIN BRADLEY NRG SP FREE TEXT ENTRY 3 NO SUSCEPTIBILITY PERFORMED NRG SP TISSUE, SPECIMEN A - 07/01/19 15:34 POS A SOURCE NRG SP A GROSS DESCRIPTION NRG SP A DIAGNOSIS NRG SP A COMMENT NRG SP Complete blood count (CBC) with automate d white blood cell (WBC) differential - POS 23:03 Blood leukocytes automated count (number/volume) 9.8 10*3/uL POS 4.3-11.0 SP Blood erythrocytes automated count (number/volume) 4.33 10*6/uL SP 4.35-5.85 SP Venous blood hemoglobin measurement (mass/volume) 13.2 g/dL SP16.0 Blood hematocrit (volume fraction) 40 % 35-52 SP Automated erythrocyte mean corpuscular volume 91 [ foz_us] SP99 Automated erythrocyte mean corpuscular h emoglobin (mass per erythrocyte) SP 30 pg 25-34 SP Automated erythrocyte mean corpuscular h emoglobin concentration measurement SP 33 g/dL 32-36 SP Automated erythrocyte distribution width ratio 14. 3 % 10.0- SP Automated blood platelet count (count/volume) 379 10*3/uL SP400 Automated blood platelet mean volume measurement 9.6 [foz_us] SP 7.4-10.4 SP Automated blood neutrophils/100 leukocytes 59 % 42-75 SP Automated blood lymphocytes/100 leukocytes 30 % 12-44 SP Blood monocytes/100 leukocytes 6 % 0-12 SP Automated blood eosinophils/100 leukocytes 4 % 0-10 SP Automated blood basophils/100 leukocytes 1 % 0-10 SP Blood neutrophils automated count (number/volume) 5.7 10*3 SP7.8 Blood lymphocytes automated count (number/volume) 3.0 10*3 SP4.0 Blood monocytes automated count (number/volume) 0. 6 10*3 SP1.0 Automated eosinophil count 0.4 10*3/uL 0 .0-0.3 SP Automated blood basophil count (count/volume) 0.1 10*3/uL SP0.1 Comprehensive metabolic panel - 08/01/19 23:03 POS Serum or plasma sodium measurement (moles/volume) 139 mmol/L SP 135-145 SP Serum or plasma potassium measurement (moles/volume) 4.2 mmol/L SP 3.6-5.0 SP Serum or plasma chloride measurement (moles/volume) 106 mmol/L SP 98-107 SP Carbon dioxide 23 mmol/L 21-32 SP Serum or plasma anion gap determination (moles/volume) 10 mmol/L SP 5-14 SP Serum or plasma urea nitrogen measurement (mass/volume ) 14 mg/dL SP 7-18 SP Serum or plasma creatinine measurement (mass/volume) 0.81 mg/dL SP 0.60-1.30 SP Serum or plasma urea nitrogen/creatinine mass ratio 17 NRG SP Serum or plasma creatinine measurement w ith calculation of estimated glomerular SP rate > NRG SP Serum or plasma glucose measurement (mass/volume) 242 mg/dL SP105 Serum or plasma calcium measurement (mass/volume) 9.3 mg/dL SP10.1 Serum or plasma total bilirubin measurement (mass/volu me) 0.2 mg/dL SP 0.1-1.0 SP Serum or plasma alkaline phosphatase lesia surement (enzymatic activity/volume) SP 70 U/L 40-136 SP Serum or plasma aspartate aminotransfera se measurement (enzymatic SP 14 U/L 5-34 SP Serum or plasma alanine aminotransferase measurement (enzymatic activity/volume) SP 9 U/L 0-55 SP Serum or plasma protein measurement (mass/volume) 6.8 g/dL SP8.2 Serum or plasma albumin measurement (mass/volume) 4.0 g/dL SP4.5 CALCIUM CORRECTED 9.3 mg/dL 8.5-10.1 SP Complete urinalysis with reflex to cultu re - 08/02/19 01:35 POS Urine color determination DELORIS NRG SP Urine clarity determination SLIGHTLY CLOUDY NRG SP Urine pH measurement by test strip 5 5-9 SP Specific gravity of urine by test strip 1.020 1.016-1.022 SP Urine protein assay by test strip, semi-quantitative 3+ SP Urine glucose detection by automated test strip 4+ NEGATIVE SP Erythrocytes detection in urine sediment by light micr oscopy 5+ SP NEGATIVE SP Urine ketones detection by automated test strip NE GATIVE SP Urine nitrite detection by test strip NEGATIVE NEGATIVE SP Urine total bilirubin detection by test strip NEGA TIVE SP Urine urobilinogen measurement by automated test strip (mass/volume) SP NORMAL SP Urine leukocyte esterase detection by dipstick 1+ NEGATIVE SP Automated urine sediment erythrocyte cou nt by microscopy (number/high power SP > [HPF] NRG SP Automated urine sediment leukocyte count by microscopy (number/high power field) SP RARE NRG SP Bacteria detection in urine sediment by light microsco py NEGATIVE SP NRG SP Squamous epithelial cells detection in u rine sediment by light microscopy SP 0-2 NRG SP Crystals detection in urine sediment by light microsco py NONE SP NRG SP Casts detection in urine sediment by light microscopy NONE SP Mucus detection in urine sediment by light microscopy NEGATIVE SP NRG SP Complete urinalysis with reflex to culture NO NRG SP Encounters ACCT No. Visit Date/Time Discharge Status POS Pt. Type Provider Facility Loc./Un it POS Complaint POS [id number] 08/19/2019 10:40:00 08/19/2019 23:59: 59 CLS SP Outpatient DORINDA HARO [facility] [id number] 07/01/2019 14:30:00 Document SPRegistration SP [id number] 08/01/2019 22:40:00 02:38:00 SP DIS Outpatient JOSEY MENG MD [facility] ER HEAVY VAGINAL BLEEDING SP [id number] 07/13/2019 10:28:00 13:56:00 SP DIS Emergency NATHALIE PATRICIA PIANO [employer] [facility] ER BACK PAIN SP [id number] 06/01/2019 20:38:00 01:06:00 SP DIS Emergency JOSE ARMSTRONG DO [facility] ER BLEEDING,PASSING BLOOD CLOTS ,PAIN SP [id number] 01/23/2019 14:15:00 019 16:30:00 SP DIS Emergency ABIDA PERERA, JOSE Hammond [facility] ER NUMBNESS IN FEET AND LEGS SP
== END 2019-08-02 02:38 | disposition home or self-care (01) ==
LOC: EDUNIT# 22:38 → ER 22:40
DX: N95.0 Postmenopausal bleeding (principal); I10 Essential (primary) hypertension; E11.40 Type 2 diabetes mellitus with diabetic neuropathy, unspecified; I25.2 Old myocardial infarction; I25.10 Atherosclerotic heart disease of native coronary artery without angina pectoris; F17.210 Nicotine dependence, cigarettes, uncomplicated; Z95.5 Presence of coronary angioplasty implant and graft; Z88.0 Allergy status to penicillin
CPT/HCPCS: 36415; 80053; 81000; 85025; 96360; 96361